=== PATIENT | female | born 1940 | race Caucasian/White ===

== ENCOUNTER 2021-11-13 15:40 | Inpatient (IN) | payer OTHER ==
[~2021-11-13] VITALS: Ht 167.6 cm; Wt 49.0 kg
[2021-11-13] MEDS: SOD FERRIC GLUC 125 MG in IV NS 0.9% 100 ML IV SCH (14:00)
[2021-11-13 18:16] LABS: BASOPHILS % (AUTO) 0.5 % (0.0-2.0); EOSINOPHILS % (AUTO) 0.2 % (0.0-6.0); LYMPHOCYTES % (AUTO) 35.1 % (20.0-44.0); MEAN CORPUSCULAR HGB CONC 30 g/dl (31.0-36.0); MEAN CORPUSCULAR VOLUME 56 fL (82-100); MONOCYTES # (AUTO) 0.4 K/uL (0.1-1.30); NEUTROPHILS # (AUTO) 3.3 K/uL (1.8-8.9); NEUTROPHILS % (AUTO) 57.2 % (43.0-81.0); PLATELET COUNT (AUTO) 439 K/uL (150-450); RED BLOOD CELL COUNT(AUTO) 2.79 MIL/uL (4.0-5.2); WHITE BLOOD COUNT (AUTO) 5.7 K/uL (4.3-11.0)
[2021-11-13 18:30] LABS: HEMOGLOBIN 4.7 g/dL (11.5-14.8)
[2021-11-13 18:31] LABS: HEMATOCRIT 16 % (33-45)
--- NOTE | 2021-11-13 18:41 | NUR ---
CALL FROM [facility], WANTS DICTATION TO INCLUDE STABLE FOR TRANSFER AND FAXED TO [phone]
--- NOTE | 2021-11-13 19:06 | NUR ---
KASSANDRA [phone] AUTH FOR PT TO STAY CONTACT DR. DERAS
--- NOTE | 2021-11-13 19:13 | NUR ---
CONTACTED DR. DERAS AWAITING CALL BACK.
[2021-11-13 19:14] LABS: CALCIUM, SERUM 7.9 mg/dL (8.5-10.1); CARBON DIOXIDE 27 mmol/L (21-32); CHLORIDE 101 mmol/L (98-107); CREATININE 1.6 mg/dL (0.6-1.3); GLUCOSE 117 mg/dL (74-106); SODIUM SERUM 137 mmol/L (136-145); UREA NITROGEN, BLOOD 36 mg/dL (7-18)
[2021-11-13 19:16] LABS: POTASSIUM 2.3 mmol/L (3.5-5.1)
--- NOTE | 2021-11-13 19:17 | NUR ---
POTASSIUM 2.3, DR TERRY AWARE
[2021-11-13 19:18] LABS: ALANINE AMINOTRANSFERASE 15 U/L (12-78); ALBUMIN 2.9 g/dL (3.4-5.0); ALKALINE PHOSPHATASE 102 U/L (46-116); ASPARTATE AMINOTRANSFERASE 11 U/L (15-37); BILIRUBIN,DIRECT 0.2 mg/dL (0.0-0.2); BILIRUBIN,TOTAL 0.5 mg/dL (0.2-1.0); TOTAL PROTEIN, SERUM 6.5 g/dL (6.4-8.2)
--- NOTE | 2021-11-13 19:26 | NUR ---
DR. DERAS SPEAKING WITH DR. TERRY OVER THE PHONE.
[2021-11-13] MEDS ORDERED: IV NS 0.9% 1,000 ML BAG IV ONE (19:30)
[2021-11-13] MEDS ORDERED: POTASSIUM CHLORIDE 20 MEQ TAB.PRT.SR PO ONE ×3 (19:30→22:00)
[2021-11-13 19:45] LABS: LYMPHOCYTES % (MANUAL) 13 % (16-48); MONOCYTES % (MANUAL) 2 % (0-11.0); NEUTROPHILS % (MANUAL) 85 (42-76)
[2021-11-13 20:14] LABS: IRON, SERUM 21 ug/dl (50-175); TOTAL IRON BINDING CAPACITY 307 ug/dl (250-450)
[2021-11-13 20:56] LABS: FERRITIN 6 ng/mL (8-388)
[2021-11-13 21:30] VITALS: BP 108/60
--- NOTE | 2021-11-13 21:30 | NUR ---
RN ADMITTING NOTE PATIENT ADMITTED FROM ER FOR SEVERE ANEMIA IN RM 321-2. PATIENT ON RA AT THIS TIME, TOLERATING WELL 100% O2 SAT. PATIENT IS ON TELE MONITOR READING CONTROLLED AFIB 88 BPM. PATIENT BROUGHT UP WITH IV FERRLECIT HOOKED ON THE PATIENT. R WRIST 18G PATENT AND INTACT WRAPPED IN KERLIX TO PREVENT PATIENT FROM PULLING OUT. PATIENT IS IRRITABLE. FOLLOWS COMMANDS, A/O X 1-2. PATIENT IS A POOR HISTORIAN. PER PATIENT, SHE IS PENTECOSTALISM. SKIN ISSUES DOCUMENTED. BELONGINGS INVENTORIED. ORIENTED PATIENT TO ROOM, RN, AND CONFIGURATION CONSULTANT. SAFETY MEASURES IN PLACE: BED LOCKED AND IN LOWEST POSITION, CALL LIGHT WITHIN REACH, SIDE RAILS UP. BED ALARM ON. WILL MONITOR PATIENT CLOSELY.
--- NOTE | 2021-11-13 21:36 | NUR ---
PATIENT TRANSFERRED TO [facility]
[2021-11-13] MEDS ORDERED: EPOETIN ALFA (20,000 UNIT) 20,000 UNIT/ML VIAL IV ONE (22:00)
[2021-11-13] MEDS ORDERED: ACETAMINOPHEN 325 MG TABLET PO PRN (22:00)
[2021-11-13] MEDS ORDERED: ZOLPIDEM TARTRATE 5 MG TABLET PO PRN (22:00)
--- NOTE | 2021-11-13 22:33 | NUR ---
EPOGEN 20,000 UNIT NOT AVAILABLE IN THE UNIT. FAXED ORDER TO NURSING SUP.
[2021-11-13] MEDS ORDERED: EPOETIN ALFA (10,000 UNIT) 10,000 UNIT/ML VIAL ONE (23:05)
--- NOTE | 2021-11-13 23:30 | NUR ---
RN NOTE CALLED BROTHER FER CORREA ([phone]) TO OBTAIN ADMISSION INFORMATION. PER BROTHER, HE IS THE DPOA AND FOR MEDICAL WELL. STATES THAT HE HAS LEGAL DOCUMENTATION THAT HE SUBMITTED TO [facility]. CONFIRMED CODE STATUS WELL WISHES PATIENT TO BE FULL CODE.
--- NOTE | 2021-11-13 23:45 | NUR ---
RN NOTE CALLED [facility] TO INFORM THEM TO FAX NEEDED DOCUMENTS, NO ANSWER. LEFT A VOICEMAIL AND CALL BACK NUMBER
[2021-11-14] VITALS: BP 110/52
[2021-11-14 04:00] VITALS: BP 103/42
--- NOTE | 2021-11-14 05:01 | NUR ---
PATIENT PULLED OUT R WRIST 18 G, INSERTED A NEW IV ACCESS ON R FA 22G PATENT AND INTACT. WRAPPED IN KERLIX WELL TO PREVENT PATIENT FROM PULLING OUT PIV
--- NOTE | 2021-11-14 06:00 | NUR ---
RN NOTE EPOGEN NOT AVAILABLE IN OTHER UNITS. WILL INFORM PHARMACY.
[2021-11-14 06:16] LABS: WHITE BLOOD COUNT (AUTO) 5.3 K/uL (4.3-11.0)
[2021-11-14 06:20] LABS: MEAN CORPUSCULAR HGB CONC 30 g/dl (31.0-36.0); MEAN CORPUSCULAR VOLUME 56 fL (82-100); PLATELET COUNT (AUTO) 412 K/uL (150-450); RED BLOOD CELL COUNT(AUTO) 2.68 MIL/uL (4.0-5.2)
[2021-11-14 06:26] LABS: HEMATOCRIT 15 % (33-45); HEMOGLOBIN 4.5 g/dL (11.5-14.8)
--- NOTE | 2021-11-14 06:28 | NUR ---
H/H REPORTED BY BIT GRINDER HGB 4.5, AND HCT 15
[2021-11-14 06:50] LABS: ALANINE AMINOTRANSFERASE 14 U/L (12-78); ALBUMIN 2.8 g/dL (3.4-5.0); ALKALINE PHOSPHATASE 99 U/L (46-116); ASPARTATE AMINOTRANSFERASE 12 U/L (15-37); BILIRUBIN,TOTAL 0.4 mg/dL (0.2-1.0); CARBON DIOXIDE 29 mmol/L (21-32); CHLORIDE 103 mmol/L (98-107); CREATININE 1.4 mg/dL (0.6-1.3); GLUCOSE 97 mg/dL (74-106); SODIUM SERUM 140 mmol/L (136-145); TOTAL PROTEIN, SERUM 6.2 g/dL (6.4-8.2); UREA NITROGEN, BLOOD 33 mg/dL (7-18)
--- NOTE | 2021-11-14 06:55 | NUR ---
RN NOTE NOTIFIED IN [facility] THAT EPOGEN 20,000 UNIT DOSE NOT GIVEN THERE WAS ONLY 10,000 UNIT AVAILABLE. VIAL GIVEN BACK TO NURSING CRUSHING FOREMAN. PER PHARMACY, IT WILL BE IN MULTIPLE 5,000 UNIT VIALS AND WILL BE DELIVERED SOON.
[2021-11-14 06:56] VITALS: BP 103/42
[2021-11-14] MEDS ORDERED: EPOETIN ALFA (20,000 UNIT) 20,000 UNIT/ML VIAL IV ONE (07:00)
--- NOTE | 2021-11-14 07:00 | NUR ---
SQL SSRS DEVELOPER OPENING NOTE PATIENT LAYING IN BED, A/O X 1, TOLERATING WELL ON ROOM AIR WITH NO S/S RESPIRATORY DISTRESS. NO COMPLAINTS OF PAIN OR DISCOMFORT AT THIS TIME. TELE MONITOR IN PLACE READING A-FIB 80. RFA # 22 G SL CLEAN, INTACT, AND FLUSHING WELL. SAFETY MEASURES IN PLACE: BED IN LOWEST LOCKED POSITION, SIDE RAILS UP X 2, CALL LIGHT WITHIN REACH. WILL CONTINUE TO MONITOR.
--- NOTE | 2021-11-14 07:04 | NUR ---
RN CLOSING NOTE PATIENT IN BED, EYES CLOSED, EASILY AWAKENED. PATIENT IS A/O X 1-2 STILL. NO PAIN OR DISCOMFORT AT THIS TIME. TELE MONITOR READS CONTROLLED AFIB 98 BPM. RFA 22G PATENT AND INTACT. ORDERED EKG DT PATIENT NOT HAVING INITIAL EKG IN ER. STILL AWAITING CALL BACK FROM [facility]. SAFETY MEASURES IMPLEMENTED. NO SIGNIFICANT CHANGES DURING THE SHIFT. ALL NEEDS MET AND ATTENDED. ALL ORDERS CARRIED OUT. WILL ENDORSE TO DAY SHIFT NURSE TO [facility].
[2021-11-14] MEDS ORDERED: MULT-134 PO (07:47)
[2021-11-14] MEDS ORDERED: ROSU10TA2 PO (07:47)
[2021-11-14] MEDS ORDERED: MEGE400O4 PO (07:47)
[2021-11-14] MEDS ORDERED: LISI10TA29 PO (07:47)
[2021-11-14] MEDS ORDERED: METO-357 PO (07:47)
[2021-11-14] MEDS ORDERED: SENN-175 PO (07:47)
[2021-11-14] MEDS ORDERED: DILT180C66 PO (07:47)
[2021-11-14] MEDS ORDERED: AMIN887L PO (07:47)
[2021-11-14 08:10] LABS: BASOPHILS % (MANUAL) 0 % (0.0-2.0); EOSINOPHILS % (MANUAL) 1 % (0-4); LYMPHOCYTES % (MANUAL) 23 % (16-48); MONOCYTES % (MANUAL) 6 % (0-11.0); NEUTROPHILS % (MANUAL) 70 (42-76)
[2021-11-14 08:36] LABS: POTASSIUM 2.3 mmol/L (3.5-5.1)
[2021-11-14] MEDS: METOPROLOL SUCCINATE 50 MG TAB.SR.24H PO SCH (09:00)
[2021-11-14] MEDS: MEGESTROL ACETATE SUSP 400 MG/10 ML UDC PO SCH ×2 (09:25→16:24)
[2021-11-14] MEDS: MULTIVIT W/MINERALS 1 TAB TABLET PO SCH (09:25)
[2021-11-14] MEDS: PROSTAT (PYXIS) 30 ML UDC PO SCH (09:33)
[2021-11-14] MEDS: POTASSIUM CHLORIDE 20 MEQ TAB.PRT.SR PO SCH ×4 (11:17→20:54)
[2021-11-14] MEDS: SOD FERRIC GLUC 125 MG in IV NS 0.9% 100 ML IV SCH (13:50)
[2021-11-14] MEDS: ENSURE ENLIVE 237 ML LIQUID (VANILLA) PO SCH (16:24)
--- NOTE | 2021-11-14 18:12 | NUR ---
RN ADMIT NOTES [facility] (FACILITY PATIENT WAS TRANSFERRED FROM) WAS CALLED AND VOICEMAIL LEFT X 2 TO REQUEST PREVIOUS MEDICATION LIST. FAX NUMBER AND PHONE NUMBER FOR [facility] WERE LEFT IN VOICEMAIL MESSAGES.
--- NOTE | 2021-11-14 18:45 | NUR ---
EMBROIDERY MACHINE OPERATOR CLOSING NOTES PATIENT LAYING IN BED, A/O X 1, TOLERATING WELL ON ROOM AIR WITH NO S/S RESPIRATORY DISTRESS. NO COMPLAINTS OF PAIN OR DISCOMFORT AT THIS TIME. TELE MONITOR IN PLACE READING A-FIB . RFA # 22 G SL CLEAN, INTACT, AND FLUSHING WELL. SAFETY MEASURES IN PLACE: BED IN LOWEST LOCKED POSITION, SIDE RAILS UP X 2, CALL LIGHT WITHIN REACH. ALL NEEDS MET. TURNED Q2H DURING SHIFT. WILL ENDORSE TO INSURANCE INSPECTOR FOR TOMI.
--- NOTE | 2021-11-14 19:30 | NUR ---
PROCESS CONTROL ENGINEER NOTES RECEIVED ON BED A/OX1-2,BREATHING EASY,NO SOB,TELE,UNCONTROLLED AFIB 123,ASYMPTOMATIC,DENIES CHEST PAIN,COMMENTED FEELING WEAK,WITH H/H OF 4.5/15 THIS MORNING,NO BLOOD TRANSFUSION DUE TO JEHOVAHS WITNESS,ON FERLICCET IV DAILY.WITH SALINE LOCK RFA INTACT AND PATENT.FALL PRECAUTION OBSERVED,BED ON LOWEST POSITION AND LOCKED,BED ALAR,CALL LIGHT IN REACH,NEEDS ANTICIPATED.
[2021-11-14 20:00] VITALS: BP 97/50
--- NOTE | 2021-11-14 21:30 | NUR ---
DIRECTOR OF SOFTWARE DEVELOPMENT NOTES STILL UNCONTROLLED AFIB THIS TIME,HR 134 ON STAT EKG,CHARGE NURSE AWARE,MD DERAS MADE AWARE AWAITING TO CALL BACK
--- NOTE | 2021-11-14 22:00 | NUR ---
PRINTED CIRCUIT BOARDS PLASMA ETCHER NOTES DR DERAS CALLED BACK WITH NEW ORDER OF DIGOXIN 0.25MG IV X1 NOTED AND CARRIED OUT.
[2021-11-14] MEDS: ATORVASTATIN 40 MG TABLET PO SCH (22:08)
[2021-11-14] MEDS: SENNOSIDES 8.6 MG TABLET PO SCH (22:09)
--- NOTE | 2021-11-14 22:26 | NUR ---
BELL HOLE DIGGER NOTES HR-134 DIGOXIN 0.25MG IV GIVEN SLOWLY ORDERED.
[2021-11-14] MEDS ORDERED: DIGOXIN INJ 0.5 MG/2 ML AMPUL IV ONE (22:30)
--- NOTE | 2021-11-14 23:10 | NUR ---
MIDDLE OR INTERMEDIATE SCHOOL PRINCIPAL NOTES HEART RATE DOWN TO 106 THIS TIME.
[2021-11-15] VITALS: BP 106/48
[2021-11-15] MEDS: POTASSIUM CHLORIDE 20 MEQ TAB.PRT.SR PO SCH ×4 (01:03→12:20)
[2021-11-15 04:00] VITALS: BP 115/69
--- NOTE | 2021-11-15 06:30 | NUR ---
DIRECTOR OF BUSINESS CONTINUITY NOTES STILL UNCONTROLLED AFIB,RATE OF 108,DENIES ANY CHEST DISCOMFORTS.EPOXY SPECIALIST WILL COME LATER FOR MORNING LAB DRAW.MEPILEX APPLIED TO SACRAL AREA.ALL DUE MEDS ADMINISTERED.CALL LIGHT IN REACH,NEEDS ATTENDED.
--- NOTE | 2021-11-15 07:00 | NUR ---
OIL PROGRAM COMPLIANCE SPECIALIST OPENING NOTES PATIENT LAYING IN BED, A/O X 1, TOLERATING WELL ON ROOM AIR WITH NO S/S RESPIRATORY DISTRESS. NO COMPLAINTS OF PAIN OR DISCOMFORT AT THIS TIME. TELE MONITOR IN PLACE READING A-FIB 106. R FA # 22 SL CLEAN, INTACT, AND FLUSHING WELL. SAFETY MEASURES IN PLACE: BED IN LOWEST LOCKED POSITION, SIDE RAILS UP X 2, CALL LIGHT WITHIN REACH. WILL CONTINUE TO MONITOR.
[2021-11-15] MEDS: ENSURE ENLIVE 237 ML LIQUID (VANILLA) PO SCH ×3 (07:33→17:58)
[2021-11-15 08:00] VITALS: BP 104/76
[2021-11-15] MEDS: METOPROLOL SUCCINATE 50 MG TAB.SR.24H PO SCH (09:00)
[2021-11-15] MEDS: MEGESTROL ACETATE SUSP 400 MG/10 ML UDC PO SCH ×2 (09:15→17:58)
[2021-11-15] MEDS: DIGOXIN 0.125 MG TABLET PO SCH (09:15)
[2021-11-15] MEDS: MULTIVIT W/MINERALS 1 TAB TABLET PO SCH (09:16)
[2021-11-15] MEDS: PROSTAT (PYXIS) 30 ML UDC PO SCH (09:17)
--- NOTE | 2021-11-15 09:19 | NUR ---
ELO HELD THIS AM TO AVOID BRADYCARDIA PATIENT ALREADY TAKING DIGOXIN AT HR 87
[2021-11-15 13:31] LABS: MEAN CORPUSCULAR HGB CONC 29 g/dl (31.0-36.0); MEAN CORPUSCULAR VOLUME 60 fL (82-100); PLATELET COUNT (AUTO) 402 K/uL (150-450); RED BLOOD CELL COUNT(AUTO) 2.64 MIL/uL (4.0-5.2); WHITE BLOOD COUNT (AUTO) 8.2 K/uL (4.3-11.0)
[2021-11-15 13:38] LABS: CALCIUM, SERUM 8.4 mg/dL (8.5-10.1)
[2021-11-15 13:41] LABS: HEMATOCRIT 16 % (33-45); HEMOGLOBIN 4.6 g/dL (11.5-14.8)
[2021-11-15 13:45] LABS: POTASSIUM 5.6 mmol/L (3.5-5.1)
[2021-11-15] MEDS: SOD FERRIC GLUC 125 MG in IV NS 0.9% 100 ML IV SCH (13:56)
[2021-11-15 14:25] LABS: BASOPHILS % (MANUAL) 0 % (0.0-2.0); EOSINOPHILS % (MANUAL) 0 % (0-4); LYMPHOCYTES % (MANUAL) 19 % (16-48); MONOCYTES % (MANUAL) 6 % (0-11.0); NEUTROPHILS % (MANUAL) 75 (42-76)
[2021-11-15 15:20] LABS: OCCULT BLOOD STOOL POSITIVE (NEGATIVE)
--- NOTE | 2021-11-15 15:22 | NUR ---
DEVELOPER SUPPORT ENGINEER NOTES SPOKE WITH DR TULIO JOHANSEN WHO WAS COVERING FOR DR DERAS. DR GREENBERG STATED PATIENT DOES NOT NEED CARDIAC CONSULT.
[2021-11-15 15:54] VITALS: BP 109/55
[2021-11-15 18:06] LABS: IRON, SERUM 110 ug/dl (50-175); TOTAL IRON BINDING CAPACITY 298 ug/dl (250-450)
[2021-11-15 18:25] LABS: CHOLESTEROL 106 mg/dL (<200); FERRITIN 195 ng/mL (8-388); HDL CHOLESTEROL 42 mg/dL (40-60); LDL 51 mg/dL (0-99); THYROID STIMULATING HORMONE 1.433 uIU/mL (0.358-3.74); TRIGLYCERIDES 46 mg/dL (30-150)
--- NOTE | 2021-11-15 19:00 | NUR ---
FINAL INSPECTOR BALANCE WHEEL CLOSING NOTES PATIENT LAYING IN BED, A/O X 1, TOLERATING WELL ON ROOM AIR WITH NO S/S RESPIRATORY DISTRESS. NO COMPLAINTS OF PAIN OR DISCOMFORT AT THIS TIME. TELE MONITOR IN PLACE READING A-FIB. R FA # 22 SL CLEAN, INTACT, AND FLUSHING WELL. SAFETY MEASURES IN PLACE: BED IN LOWEST LOCKED POSITION, SIDE RAILS UP X 2, CALL LIGHT WITHIN REACH. ALL NEEDS MET. ATTENDING MD WAS MADE AWARE OF PATIENT A-FIB DURING SHIFT, BUT NO CARDIAC CONSULT WAS RECOMMENDED. PATIENT TURNED Q2H. WILL ENDORSE TO WASTEWATER ENGINEER FOR TOMI.
--- NOTE | 2021-11-15 19:30 | NUR ---
DEPARTMENT SECRETARY NOTES RECEIVED LAYING COMFORTABLY ON BED,BREATHING EASY,NO SOB,STILL UNCONTROLLED AFIB ON TELE MONITOR 114,ON DIGOXIN 0.125 PO DAILY.SALINE LOCK RIGHT FOREARM INTACT AND PATENT.H/H STILL LOW AT 4.6/16,POSITIVE FOR OCCULT BLOOD.CALL LIGHT IN REACH,NEEDS ANTICIPATED.
[2021-11-15 20:00] VITALS: BP 97/42
[2021-11-15] MEDS: ATORVASTATIN 40 MG TABLET PO SCH (21:56)
[2021-11-15] MEDS: SENNOSIDES 8.6 MG TABLET PO SCH (21:57)
[2021-11-16 04:00] VITALS: BP 106/51
--- NOTE | 2021-11-16 06:50 | NUR ---
CHOKE SETTER NOTES AFIB 102 THIS TIME.CALM AND QUIET ON BED,MED COMPLIANT,VITAL SIGNS STABLE,IN NO ACUTE DISTRESS.
[2021-11-16 07:05] LABS: BASOPHILS % (AUTO) 0.5 % (0.0-2.0); EOSINOPHILS % (AUTO) 0.3 % (0.0-6.0); LYMPHOCYTES # (AUTO) 1.3 K/uL (0.8-4.8); LYMPHOCYTES % (AUTO) 18.6 % (20.0-44.0); MEAN CORPUSCULAR HGB CONC 29 g/dl (31.0-36.0); MEAN CORPUSCULAR VOLUME 59 fL (82-100); MONOCYTES # (AUTO) 0.7 K/uL (0.1-1.30); MONOCYTES % (AUTO) 10.7 % (2.0-12.0); NEUTROPHILS # (AUTO) 4.9 K/uL (1.8-8.9); NEUTROPHILS % (AUTO) 69.9 % (43.0-81.0); PLATELET COUNT (AUTO) 382 K/uL (150-450); RED BLOOD CELL COUNT(AUTO) 2.52 MIL/uL (4.0-5.2)
[2021-11-16 07:06] LABS: CANCER AG, 125 39.1 U/mL (0.0-38.1)
[2021-11-16 07:22] LABS: ALBUMIN 2.8 g/dL (3.4-5.0); CALCIUM, SERUM 8.6 mg/dL (8.5-10.1); CARBON DIOXIDE 22 mmol/L (21-32); CHLORIDE 114 mmol/L (98-107); CREATININE 1.1 mg/dL (0.6-1.3); GLUCOSE 97 mg/dL (74-106); MAGNESIUM 2.7 mg/dL (1.8-2.4); POTASSIUM 5.5 mmol/L (3.5-5.1); SODIUM SERUM 142 mmol/L (136-145); UREA NITROGEN, BLOOD 19 mg/dL (7-18)
[2021-11-16 07:48] LABS: HEMOGLOBIN 4.2 g/dL (11.5-14.8)
[2021-11-16 07:49] LABS: HEMATOCRIT 15 % (33-45)
[2021-11-16] MEDS: ENSURE ENLIVE 237 ML LIQUID (VANILLA) PO SCH ×3 (07:50→17:06)
[2021-11-16 08:00] VITALS: BP 92/48
[2021-11-16 08:05] LABS: ALANINE AMINOTRANSFERASE 16 U/L (12-78); ALKALINE PHOSPHATASE 101 U/L (46-116); ASPARTATE AMINOTRANSFERASE 14 U/L (15-37); BILIRUBIN,TOTAL 0.5 mg/dL (0.2-1.0); PHOSPHORUS 1.5 mg/dL (2.5-4.9); TOTAL PROTEIN, SERUM 6.2 g/dL (6.4-8.2)
--- NOTE | 2021-11-16 08:18 | NUR ---
RN NOTE CRITICAL LAB VALUE OF HEMOGLOBIN 4.2 AND HEMATOCRIT 15 RECEIVED. LAB VALUE EXPECTED DUE TO PT REFUSING PRBC TRANSFUSION WITH A HX OF SEVERE ANEMIA. AWARE OF PT'S REFUSAL OF TREATMENT AND OF CRITICAL LAB VALUES OVER PAST FEW DAYS.
[2021-11-16] MEDS: MULTIVIT W/MINERALS 1 TAB TABLET PO SCH (08:26)
[2021-11-16] MEDS: MEGESTROL ACETATE SUSP 400 MG/10 ML UDC PO SCH ×2 (08:27→17:04)
[2021-11-16] MEDS: PROSTAT (PYXIS) 30 ML UDC PO SCH (08:27)
[2021-11-16] MEDS: METOPROLOL SUCCINATE 50 MG TAB.SR.24H PO SCH (08:27)
[2021-11-16] MEDS: DIGOXIN 0.125 MG TABLET PO SCH (08:27)
--- NOTE | 2021-11-16 08:33 | NUR ---
RN NOTE PT EDUCATED ON LOW HEMOGLOBIN AND HEMATOCRIT AND THE HIGH RISK AND POSSIBLE COMPLICATIONS ASSOCIATED WITH REFUSING PRBC TRANSFUSION. PT VERBALIZES UNDERSTANDING AND CONTINUES TO REFUSE BLOOD TRANSFUSION. PT VERBALIZES DESIRES TO REMAIN FULL CODE AT THIS TIME.
[2021-11-16] MEDS ORDERED: IV NS 0.9% 1,000 ML IV PRN (09:00)
[2021-11-16] MEDS: NEUTRA PHOS 1 POWD.PACKET PO SCH ×2 (09:01→17:04)
[2021-11-16 11:59] LABS: BASOPHILS % (MANUAL) 0 % (0.0-2.0); EOSINOPHILS % (MANUAL) 0 % (0-4); LYMPHOCYTES % (MANUAL) 22 % (16-48); MONOCYTES % (MANUAL) 6 % (0-11.0); NEUTROPHILS % (MANUAL) 72 (42-76)
[2021-11-16] MEDS: SOD FERRIC GLUC 125 MG in IV NS 0.9% 100 ML IV SCH (14:53)
[2021-11-16 16:00] VITALS: BP 118/64
--- NOTE | 2021-11-16 17:09 | NUR ---
RN NOTE IV INFILTRATED. PT HARD STICK, UNABLE TO PLACE NEW ONE. REQUESTED MIDLINE PLACEMENT FROM NURSING SUP.
--- NOTE | 2021-11-16 19:30 | NUR ---
LEARNING DESIGNER OPENING NOTE RECEIVED PT RESTING IN BED. A/O X3 AND ABLE TO MAKE NEEDS KNOWN. PT STABLE ON ROOM AIR. NO SOB OR S/S OF RESPIRATORY DISTRESS. BREATHING EVEN AND UNLABORED. ON EXTERNAL MANUAL QA TESTER READING UNCONTROLLED AFIB @ 110 BPM. IV ACCESS MANDIE MIDLINE, INTACT AND PATENT, RUNNING NS @ 50 ML/HR. SAFETY PRECAUTIONS IN PLACE. BED IN LOWEST LOCKED POSITION, HOB ELEVATED, SIDE RAILS UP X3, AND CALL LIGHT AND TABLE WITHIN REACH. ALL NEEDS MET AT THIS TIME.
[2021-11-16 20:00] VITALS: BP 110/55
[2021-11-16] MEDS: SENNOSIDES 8.6 MG TABLET PO SCH (21:28)
[2021-11-16] MEDS: SODIUM POLYSTYRENE SULF. PWD 15 GM UDC PO SCH (22:00)
[2021-11-17] VITALS (8 sets, daily range): BP systolic 97–120; BP diastolic 42–62
--- NOTE | 2021-11-17 06:43 | NUR ---
FARM MACHINE TENDER CLOSING NOTE PT RESTING IN BED. A/O X3 AND ABLE TO MAKE NEEDS KNOWN. PT STABLE ON ROOM AIR. NO SOB OR S/S OF RESPIRATORY DISTRESS. BREATHING EVEN AND UNLABORED. ON EXTERNAL WINDOW FRAMER READING CONTROLLED AFIB @ 90 BPM. IV ACCESS MANDIE MIDLINE, INTACT AND PATENT, RUNNING NS @ 50 ML/HR. ALL DUE MEDS GIVEN ORDERED. TURNED AND REPOSITIONED Q2H. SAFETY PRECAUTIONS IN PLACE AT ALL TIMES. BED IN LOWEST LOCKED POSITION, HOB ELEVATED, SIDE RAILS UP X3, AND CALL LIGHT AND TABLE WITHIN REACH. ALL NEEDS MET AT THIS TIME AND WILL ENDORSE TO ONCOMING NURSE FOR TOMI.
--- NOTE | 2021-11-17 07:30 | NUR ---
CERTIFIED REGISTERED DENTAL ASSISTANT OPENING NOTES: RECEIVED PT IN BED ASLEEP EASILY AROUSED WITH STIMULI.A/O X3. NO SOB OR CARDIAC DISTRESS NOTED. OM ROOM AIR AND TOLERATING WELL. ON CARDIAC MONITPOR WITH CURRENT READING OF AFIB @90BPM. DENIES ANY PAIN AT THIS TIME. WITH IV ACCESS ON MANDIE MIDLINE NS @50ML/HR PATENT AND INTACT. SAFETY PRECAUTIONS MAINTAINED: BED LOCKED AND IN LOWEST POSITION. SIDE RAILS UP X 2. CALL LIGHT IN EASY REACH. KEPT RESTED AND COMFORTABLE. WILL MONITOR ACCORDINGLY.
[2021-11-17] MEDS: ENSURE ENLIVE 237 ML LIQUID (VANILLA) PO SCH ×3 (08:02→17:00)
[2021-11-17] MEDS: METOPROLOL SUCCINATE 50 MG TAB.SR.24H PO SCH (09:00)
[2021-11-17] MEDS: MULTIVIT W/MINERALS 1 TAB TABLET PO SCH (09:01)
[2021-11-17] MEDS: MEGESTROL ACETATE SUSP 400 MG/10 ML UDC PO SCH ×2 (09:01→17:29)
[2021-11-17] MEDS: DIGOXIN 0.125 MG TABLET PO SCH (09:02)
[2021-11-17] MEDS: PROSTAT (PYXIS) 30 ML UDC PO SCH (09:03)
[2021-11-17] MEDS: NEUTRA PHOS 1 POWD.PACKET PO SCH ×2 (09:06→17:29)
[2021-11-17] MEDS: SODIUM POLYSTYRENE SULF. PWD 15 GM UDC PO SCH (10:00)
[2021-11-17] MEDS: IV NS 0.9% 1,000 ML IV PRN (10:39)
--- NOTE | 2021-11-17 11:00 | NUR ---
RN NOTES: ENCOURAGING TO DRINK FLUIDS TOLERATED. PATIENT KEPT REFUSING TO DRINK.
[2021-11-17] MEDS ORDERED: PEG 3350/NA SULF,BICARB,CL/KCL 4,000 ML BOTTLE PO ONE (12:00)
--- NOTE | 2021-11-17 12:00 | NUR ---
RN NOTES: BRIEFLY EXPLAINED TO PT THAT SHE WILL HAVE A PROCEDURE TOMORROW MORNING FOR COLONOSCOPY, SHE WILL HAVE CLEAR LIQUIDS AND WILL DRINK A BOWEL PREP ORDERED. OBTAINED CONSENT FOR THE PROCEDURE.
[2021-11-17] MEDS: ENSURE CLEAR 237 ML LIQUID (MIX BERRY) PO SCH ×2 (12:09→17:29)
--- NOTE | 2021-11-17 12:30 | NUR ---
RN NOTES: PATIENTLY ENCOURAGING PATIENT TO DRINK GOLYTLEY (BOWEL PREP). PATIENT ABLE TO DRINK 1 CUP.
--- NOTE | 2021-11-17 14:00 | NUR ---
RN NOTES: OFFERED THE BOWEL PREP GOLYTELY, PATIENT ONLY HAD FEW SIPS AND REFUSED TO DRINK.
[2021-11-17] MEDS: SOD FERRIC GLUC 125 MG in IV NS 0.9% 100 ML IV SCH (14:34)
--- NOTE | 2021-11-17 15:00 | NUR ---
RN NOTES: ENCOURAGED PT TO DRINK BOWEL PREP BUT PATIENT TOOK ONLY FEW SIPS.
--- NOTE | 2021-11-17 16:30 | NUR ---
RN NOTES: PATIENT IS GETTING UPSET SHE SAID SHE'S FULL FROM THE BOWEL PREP.
--- NOTE | 2021-11-17 18:37 | NUR ---
CRM ADMINISTRATOR CLOSING NOTES: PATIENT IN BED AWAKE A/O X3. NO SOB OR CARDIAC DISTRESS NOTED. ON ROOM AIR AND TOLERATING WELL. ON CARDIAC MONITPOR WITH CURRENT READING OF CONTROLLED AFIB @88BPM. DENIES ANY PAIN AT THIS TIME. WITH IV ACCESS ON MANDIE MIDLINE NS @50ML/HR PATENT AND INTACT. ON CLEAR LIQUIDS. SAFETY PRECAUTIONS MAINTAINED: BED LOCKED AND IN LOWEST POSITION. SIDE RAILS UP X 2. CALL LIGHT IN EASY REACH. KEPT RESTED AND COMFORTABLE. ENDORSED TO PAINT ROLLER COVERS SUPERVISOR FOR TOMI.
--- NOTE | 2021-11-17 21:06 | NUR ---
BOX COVERER HAND OPENING NOTES: PATIENT IN BED AWAKE A/O X3. NO SOB OR CARDIAC DISTRESS NOTED. ON ROOM AIR AND TOLERATING WELL. ON METAL OR WOOD BLOCKER WITH CURRENT READING OF CONTROLLED AFIB @88BPM. DENIES ANY PAIN AT THIS TIME. WITH IV ACCESS ON MANDIE MIDLINE NS @75ML/HR PATENT AND INTACT. ON CLEAR LIQUIDS. SAFETY PRECAUTIONS MAINTAINED PT TO BE NPO AFTER MIDNIGHT FOR COLONOSCOPY.BED LOCKED AND IN LOWEST POSITION. SIDE RAILS UP X 2. CALL LIGHT IN EASY REACH. KEPT RESTED AND COMFORTABLE.WILL CONTINUE TO MONITOR.
[2021-11-17] MEDS: SENNOSIDES 8.6 MG TABLET PO SCH (21:34)
[2021-11-18] VITALS: BP 112/57
[2021-11-18 04:00] VITALS: BP 115/59
--- NOTE | 2021-11-18 06:32 | NUR ---
FISHERIES TECHNICIAN CLOSING NOTES: PATIENT IN BED AWAKE A/O X3. NO SOB OR CARDIAC DISTRESS NOTED. ON ROOM AIR AND TOLERATING WELL. ON SCREEN TENDER WITH CURRENT READING OF CONTROLLED AFIB. DENIES ANY PAIN AT THIS TIME. WITH IV ACCESS ON MANDIE MIDLINE NS @75ML/HR PATENT AND INTACT. SAFETY PRECAUTIONS MAINTAINED PT NPO FOR COLONOSCOPY HOWEVER PT REFUSED TO TAKE PREP MULTIPLE TIMES THROUGHOUT THE NIGHT .BED LOCKED AND IN LOWEST POSITION. SIDE RAILS UP X 2. CALL LIGHT IN EASY REACH. KEPT RESTED AND COMFORTABLE.WILL ENDORSE CARE.
[2021-11-18 07:13] LABS: CALCIUM, SERUM 8.5 mg/dL (8.5-10.1); CARBON DIOXIDE 19 mmol/L (21-32); CHLORIDE 118 mmol/L (98-107); CREATININE 0.9 mg/dL (0.6-1.3); GLUCOSE 80 mg/dL (74-106); PHOSPHORUS 3.4 mg/dL (2.5-4.9); POTASSIUM 3.9 mmol/L (3.5-5.1); SODIUM SERUM 151 mmol/L (136-145); UREA NITROGEN, BLOOD 13 mg/dL (7-18)
--- NOTE | 2021-11-18 07:30 | NUR ---
APPLICATION SECURITY DEVELOPER OPENING NOTES: RECEIVED PT IN BED ASLEEP EASILY AROUSED WITH STIMULI.A/O X3. NO SOB OR CARDIAC DISTRESS NOTED. OM ROOM AIR AND TOLERATING WELL. ON COMPENSATOR WORKER WITH CURRENT READING OF CONTROLLED AFIB @88 BPM. DENIES ANY PAIN AT THIS TIME. WITH IV ACCESS ON MANDIE MIDLINE NS @50ML/HR PATENT AND INTACT. ON NPO ORDERED.SAFETY PRECAUTIONS MAINTAINED: BED LOCKED AND IN LOWEST POSITION. SIDE RAILS UP X 2. CALL LIGHT IN EASY REACH. KEPT RESTED AND COMFORTABLE. WILL MONITOR ACCORDINGLY.
[2021-11-18 07:31] LABS: MEAN CORPUSCULAR HGB CONC 29 g/dl (31.0-36.0); MEAN CORPUSCULAR VOLUME 63 fL (82-100); PLATELET COUNT (AUTO) 364 K/uL (150-450); RED BLOOD CELL COUNT(AUTO) 2.54 MIL/uL (4.0-5.2); WHITE BLOOD COUNT (AUTO) 7.3 K/uL (4.3-11.0)
[2021-11-18 07:39] LABS: HEMATOCRIT 16 % (33-45); HEMOGLOBIN 4.7 g/dL (11.5-14.8)
[2021-11-18 08:00] VITALS: BP 113/58
[2021-11-18] MEDS: ENSURE CLEAR 237 ML LIQUID (MIX BERRY) PO SCH ×3 (08:00→17:40)
--- NOTE | 2021-11-18 08:56 | NUR ---
RN NOTES: PT SEEN AND EXAMINED BY DR DERAS.WITH NEW ORDERS MADE.
[2021-11-18] MEDS: DIGOXIN 0.125 MG TABLET PO SCH (09:00)
[2021-11-18] MEDS: METOPROLOL SUCCINATE 50 MG TAB.SR.24H PO SCH (09:00)
[2021-11-18] MEDS: NEUTRA PHOS 1 POWD.PACKET PO SCH ×2 (09:00→17:40)
[2021-11-18] MEDS: PROSTAT (PYXIS) 30 ML UDC PO SCH (09:00)
[2021-11-18] MEDS: MULTIVIT W/MINERALS 1 TAB TABLET PO SCH (09:00)
[2021-11-18] MEDS: SODIUM POLYSTYRENE SULF. PWD 15 GM UDC PO SCH (09:00)
[2021-11-18] MEDS: MEGESTROL ACETATE SUSP 400 MG/10 ML UDC PO SCH ×2 (09:50→17:40)
--- NOTE | 2021-11-18 09:56 | NUR ---
RN NOTES: DR DERAS MADE AWARE THAT PT IS NOT COMPLIANT ON DRINKING HER BOWEL PREP. GOT AN ORDER OF NGT INSERTION FROM DR DERAS. PATIENT WAS INFORMED AND VERBALLY CONSENTED US TO DO NGT INSERTION.
[2021-11-18 12:00] VITALS: BP_SYST 112; BP_SYST 117; BP_DIAS 58
[2021-11-18 13:43] LABS: BAND % (MANUAL) 1 % (0.0-5.0); LYMPHOCYTES % (MANUAL) 16 % (16-48); MONOCYTES % (MANUAL) 5 % (0-11.0); NEUTROPHILS % (MANUAL) 78 (42-76)
--- NOTE | 2021-11-18 14:00 | NUR ---
RN NOTES: RNS TERA AND MINERVA INITIATE DTO INSERT NGT BUT PT REFUSED TO GET NGT. DR DERAS MADE AWARE AND SAID OKAY AND PAGED DR MONSIVAIS, AWAITING FOR CALL BACK,.
[2021-11-18] MEDS: EPOETIN ALFA-EPBX 10,000 UNIT/ML VIAL IV SCH (14:13)
[2021-11-18 16:00] VITALS: BP 109/57
--- NOTE | 2021-11-18 16:17 | NUR ---
RN NOTES: VISITOR AT BED SIDE AND WE ENCOURAGED PT TO DRINK THE BOWEL PREP X 3 AND PT STRONGLY REFUSED.
--- NOTE | 2021-11-18 16:46 | NUR ---
PRECISION MACHINIST CLOSING NOTES: PATIENT IN BED .A/O X3. NO SOB OR CARDIAC DISTRESS NOTED. ON ROOM AIR AND TOLERATING WELL. ON RIVERS AND LAKES LEVERMAN WITH CURRENT READING OF CONTROLLED AFIB WITH PVCs @ 96 BPM. DENIES ANY PAIN AT THIS TIME. WITH IV ACCESS ON MANDIE MIDLINE NS @50ML/HR PATENT AND INTACT. ON CLEAR LIQUID ORDERED.SAFETY PRECAUTIONS MAINTAINED: BED LOCKED AND IN LOWEST POSITION. SIDE RAILS UP X 2. CALL LIGHT IN EASY REACH. KEPT RESTED AND COMFORTABLE. ENDORSED TO APPLICATION INTEGRATION ARCHITECT NURSE FOR TOMI.
--- NOTE | 2021-11-18 19:05 | NUR ---
RN NOTES: RECEIEVD AWAKE ON BED, PALE LOOKING, LOOKS WEAK, DRY LIPS AND ON TELE MONITOR A FIB RATE-91, A/OX1-2 WITH PERIODS OF CONFUSION, ORIENTED TO UNIT AND STAFF, NON LABORED BREATHING, ON ROOM AIR, INCONTINENT B/B, CONTINUE ON BOWEL PREPARATION FOR POSSIBOLE ENDOSCOPY, PER RN VERY POOR COMPLIANCE WITH ORAL INFUSION OF GOLITELY, , ON BED REST, SKIN INTACT, MANDIE MID LINE WITH IVF ON NS AT 50 ML/HR,. -SAFETY AND ASPIRATION PRECAUTION OBSERVE. -LATEST HG-4.7, NO BT SECONDARY TO JEWISH BELIEF.
[2021-11-18 20:00] VITALS: BP 115/54
[2021-11-18] MEDS: SENNOSIDES 8.6 MG TABLET PO SCH (21:05)
--- NOTE | 2021-11-18 22:01 | NUR ---
RN NOTES: CHECKED AT [facility] INTERVALS AND GIVEN HER DRINK, SHE WILL ONLY TAKE A SMALL SIPS, THEN SHE REFUSED, MEDICATION COMPLIANT BUT NOT ON HER ORAL BOWEL PREP, IVF CONTINUE.NEEDS ATTENDED.
[2021-11-19] VITALS: BP 111/51
[2021-11-19] MEDS: IV NS 0.9% 1,000 ML IV PRN (04:34)
--- NOTE | 2021-11-19 04:34 | NUR ---
RN NOTES: IVF CONSUMED, STARTED WITH NEW BAG NS AT 50 ML/HR VIA INFUSION PUMP, ASLEEP IN BETWEEN.
[2021-11-19 06:12] LABS: CALCIUM, SERUM 8.3 mg/dL (8.5-10.1); CARBON DIOXIDE 18 mmol/L (21-32); CHLORIDE 119 mmol/L (98-107); GLUCOSE 84 mg/dL (74-106); POTASSIUM 3.4 mmol/L (3.5-5.1); SODIUM SERUM 154 mmol/L (136-145); UREA NITROGEN, BLOOD 13 mg/dL (7-18)
[2021-11-19 06:38] VITALS: BP 123/59
[2021-11-19 07:22] LABS: MEAN CORPUSCULAR HGB CONC 29 g/dl (31.0-36.0); MEAN CORPUSCULAR VOLUME 64 fL (82-100); PLATELET COUNT (AUTO) 352 K/uL (150-450); RED BLOOD CELL COUNT(AUTO) 2.39 MIL/uL (4.0-5.2); WHITE BLOOD COUNT (AUTO) 7.5 K/uL (4.3-11.0)
--- NOTE | 2021-11-19 07:27 | NUR ---
CREPE SOLE WIRE BRUSHER OPENING NOTE RECEIVED PT ASLEEP IN BED, EASILY AROUSED. A/O X1-2, REORIENTED PT NEEDED. ON RA, TOLERATING WELL. NO SOB NOTED. NOT IN ANY SIGN OF RESPIRATORY DISTRESS. ON CARDIAC TELE MONITOR WITH CURRENT READING OF AFIB CONTROLLED, HR 82. NO C/O CARDIAC DISTRESS VOICED AT THIS TIME. IV ACCESS IN MANDIE MIDLINE INTACT, AND PATENT WITH NS INFUSING AT 50ML/HR. SAFETY MEASURES IN PLACE: BED IN LOWEST AND LOCKED POSITION, SIDE RAILS UPX2, BED ALARM ON AND CALL LIGHT WITHIN REACH. WILL CONTINUE TO MONITOR PT.
[2021-11-19 07:41] LABS: HEMATOCRIT 15 % (33-45); HEMOGLOBIN 4.4 g/dL (11.5-14.8)
--- NOTE | 2021-11-19 07:47 | NUR ---
RN NOTES: ABLE TO SLEEP AND REST, NO PAIN OR DISCOMFORT NO SIGN OF RESPIRATORY DISTRESS, KEPT MONIOTRED, NPO FOR POSSIBLE COLONOSCOPY, TO CALL IN THE MORNING TO F/U, STILL PENDING FOR GYNE F/U REGARDING HER IMAGING RESULTS, TURNING AND REPOSITIONING DONE, OFF LOADING DONE, IVF ONGOING, ENDORSED FOR CONTINUITY OF CARE. Addendum: 11/19/21 at 8524 by CLARKE CELIS RN ADDED NOTES: ON CONSULTANT MACI WITH PVC RATE-88.
[2021-11-19 08:00] VITALS: BP 110/54
[2021-11-19] MEDS: ENSURE CLEAR 237 ML LIQUID (MIX BERRY) PO SCH ×3 (08:00→16:22)
--- NOTE | 2021-11-19 08:00 | NUR ---
RN ANGELIQUE RECEIVED A CALL FROM [facility] REPORTING PT'S CRITICAL LAB VALUE OF HEMOGLOBIN 4.4 AND [address]CRIT [address] DERAS AND MADE HIM AWARE OF CRITICAL LAB WITH NO NEW ORDER AT THIS TIME. PER MD HE WILL SEE THE PT.
[2021-11-19] MEDS: DIGOXIN 0.125 MG TABLET PO SCH (08:22)
[2021-11-19] MEDS: PROSTAT (PYXIS) 30 ML UDC PO SCH (08:23)
[2021-11-19] MEDS: NEUTRA PHOS 1 POWD.PACKET PO SCH ×2 (08:23→16:27)
[2021-11-19] MEDS: MULTIVIT W/MINERALS 1 TAB TABLET PO SCH (08:23)
[2021-11-19] MEDS: METOPROLOL SUCCINATE 50 MG TAB.SR.24H PO SCH (08:23)
[2021-11-19] MEDS: MEGESTROL ACETATE SUSP 400 MG/10 ML UDC PO SCH ×2 (08:23→16:26)
--- NOTE | 2021-11-19 09:22 | NUR ---
RN NOTE RECEIVED A CALL FROM DR. MONSIVAIS WITH ORDERS TO GIVE PT 4 TABS OF DULCOLAX 5MG PO ONCE. AND AFTER AN HOUR TO GIVE 238 GM MIRALAX IN 64 OZ WATER ONCE PO THEN NPO AFTER MIDNIGHT.
[2021-11-19] MEDS ORDERED: BISACODYL (5 MG) 5 MG TABLET.DR PO ONE (09:30)
[2021-11-19] MEDS ORDERED: POTASSIUM CHLORIDE 20 MEQ TAB.PRT.SR PO SCH (10:00)
[2021-11-19 10:31] LABS: LYMPHOCYTES % (MANUAL) 12 % (16-48); MONOCYTES % (MANUAL) 5 % (0-11.0); NEUTROPHILS % (MANUAL) 83 (42-76)
[2021-11-19] MEDS ORDERED: POLYETHYLENE GLYCOL 3350 17 GM POWD.PACK PO ONE (11:00)
[2021-11-19 12:02] VITALS: BP 116/69
[2021-11-19] MEDS: EPOETIN ALFA-EPBX 10,000 UNIT/ML VIAL IV SCH (14:59)
[2021-11-19 16:00] VITALS: BP 121/57
--- NOTE | 2021-11-19 16:27 | NUR ---
RN NOTE PT REFUSED NEUTRA PHOS PACKET AND MEGACE SUSP SCHEDULED AT 1700. PT AGREED TO TAKE MEDICATIONS AT FIRST BUT REFUSED WHEN ABOUT TO ADMINISTER MEDICATION. EXPLAINED RISK AND BENEFITS STILL STRONGLY REFUSED.
--- NOTE | 2021-11-19 19:15 | NUR ---
RN OPENING NOTE PATIENT IN BED, AWAKE. PATIENT IS A/O X 1-2 AT THIS TIME. PATIENT IS CURRENTLY ON RA, TOLERATING WELL. NO SOB OR REPARATORY DISTRESS NOTED. TELE MONITOR READS AFIB CONTROLLED AT 79 BPM. PATIENT HAS A R UPPER ARM MIDLINE, PATENT AND INTACT WITH NS AT 50 ML/HR ONGOING. PATIENT TO BE NPO AT MIDNIGHT FOR COLONOSCOPY TOMORROW. SAFETY MEASURES IN PLACE, BED LOCKED AND IN LOWEST POSITION, CALL LIGHT WITHIN REACH, SIDE RAILS UP. WILL MONITOR PATIENT CLOSELY.
--- NOTE | 2021-11-19 19:17 | NUR ---
DIRECTOR OF PHYSICAL EDUCATION CLOSING NOTE PT ASLEEP IN BED, EASILY AROUSED. A/O X1-2, REORIENTED PT NEEDED. ON RA, TOLERATING WELL. NO SOB NOTED. NOT IN ANY SIGN OF RESPIRATORY DISTRESS. ON CARDIAC TELE MONITOR WITH CURRENT READING OF AFIB CONTROLLED, HR 84. NO C/O CARDIAC DISTRESS VOICED AT THIS TIME. IV ACCESS IN MANDIE MIDLINE INTACT, AND PATENT WITH NS INFUSING AT 50ML/HR. ALL NEEDS ATTENDED. KEPT CLEAN AND COMFORTABLE. SAFETY MEASURES IN PLACE: BED IN LOWEST AND LOCKED POSITION, SIDE RAILS UPX2, BED ALARM ON AND CALL LIGHT WITHIN REACH. ENDORSED TO SKI PATROL OFFICER NURSE FOR TOMI.
[2021-11-19 20:00] VITALS: BP 119/57
[2021-11-19] MEDS: SENNOSIDES 8.6 MG TABLET PO SCH (21:46)
[2021-11-19] MEDS ORDERED: IV D5/0.45 NACL 1,000 ML IV SCH (22:30)
[2021-11-20] VITALS: BP 107/51
--- NOTE | 2021-11-20 00:12 | NUR ---
PATIENT PULLED OUT MANDIE MIDLINE, WILL RE INSERT NEW IV ACCESS.
--- NOTE | 2021-11-20 00:44 | NUR ---
RFA 22G IV ACCESS ESTABLISHED. PATENT AND INTACT, WRAPPED IN KERLIX TO PREVENT PATIENT FROM REMOVING IV LINE
[2021-11-20 04:00] VITALS: BP 144/52
[2021-11-20 06:07] LABS: CALCIUM, SERUM 7.8 mg/dL (8.5-10.1); CARBON DIOXIDE 20 mmol/L (21-32); CHLORIDE 119 mmol/L (98-107); GLUCOSE 106 mg/dL (74-106); SODIUM SERUM 152 mmol/L (136-145); UREA NITROGEN, BLOOD 10 mg/dL (7-18)
[2021-11-20 06:13] LABS: POTASSIUM 2.6 mmol/L (3.5-5.1)
--- NOTE | 2021-11-20 06:39 | NUR ---
NOTIFIED BY [facility] THAT POTASSIUM LEVEL IS 2.6. PAGED DR. BRAEDEN [facility].
--- NOTE | 2021-11-20 06:51 | NUR ---
RN CLOSING NOTE PATIENT IN BED, AWAKE. PATIENT IS A/O X 1-2 AT THIS TIME. PATIENT IS CURRENTLY ON RA, TOLERATING WELL. NO SOB OR REPARATORY DISTRESS NOTED. TELE MONITOR READS AFIB CONTROLLED AT 80 BPM. PATIENT HAS A R FA 22G, PATENT AND INTACT WITH D5 1/2NS AT 100 ML/HR ONGOING. PATIENT NPO AT THIS TIME. SAFETY MEASURES IN PLACE, BED LOCKED AND IN LOWEST POSITION, CALL LIGHT WITHIN REACH, SIDE RAILS UP. ALL NEEDS MET AND ATTENDED. ALL ORDERS CARRIED OUT. WILL ENDORSE TO DAY SHIFT NURSE FOR TOMI.
--- NOTE | 2021-11-20 07:27 | NUR ---
MANAGEMENT TRAINEE MARKETING OPENING NOTE RECEIVED PT ASLEEP IN BED, EASILY AROUSED. A/O X1, REORIENTED PT NEEDED. ON RA, TOLERATING WELL. NO SOB NOTED. NOT IN ANY SIGN OF RESPIRATORY DISTRESS. ON CARDIAC TELE MONITOR WITH CURRENT READING OF AFIB CONTROLLED, HR 78. NO C/O CARDIAC DISTRESS VOICED AT THIS TIME. IV ACCESS IN MANDIE MIDLINE INTACT, AND PATENT WITH NS INFUSING AT 50ML/HR. SAFETY MEASURES IN PLACE: BED IN LOWEST AND LOCKED POSITION, SIDE RAILS UPX2, BED ALARM ON AND CALL LIGHT WITHIN REACH. WILL CONTINUE TO MONITOR PT.
[2021-11-20 08:00] VITALS: BP 121/64
[2021-11-20] MEDS: ENSURE CLEAR 237 ML LIQUID (MIX BERRY) PO SCH ×3 (08:00→17:00)
[2021-11-20] MEDS ORDERED: POTASSIUM CHLORIDE 20 MEQ TAB.PRT.SR PO SCH (08:00)
[2021-11-20] MEDS: POTASSIUM CL. PREMIX PERIPHER. 50 ML IV SCH ×10 (08:02→17:56)
[2021-11-20] MEDS: NEUTRA PHOS 1 POWD.PACKET PO SCH ×2 (09:00→17:00)
[2021-11-20] MEDS: MEGESTROL ACETATE SUSP 400 MG/10 ML UDC PO SCH ×2 (09:00→17:00)
[2021-11-20] MEDS: PROSTAT (PYXIS) 30 ML UDC PO SCH (09:00)
[2021-11-20] MEDS ORDERED: POTASSIUM CHLORIDE 10 MEQ/50 ML PREMIXED IVPB FOR PERIPHERAL LINE IV ONE (09:00)
[2021-11-20] MEDS: MULTIVIT W/MINERALS 1 TAB TABLET PO SCH (09:00)
[2021-11-20] MEDS: METOPROLOL SUCCINATE 50 MG TAB.SR.24H PO SCH (09:00)
[2021-11-20] MEDS: DIGOXIN 0.125 MG TABLET PO SCH (09:00)
[2021-11-20] MEDS: Potassium Chloride 20 MEQ in IV D5W 1,000 ML IV SCH ×2 (09:49→22:58)
[2021-11-20 12:00] VITALS: BP 128/59
--- NOTE | 2021-11-20 13:50 | NUR ---
RN NOTE RECEIVED A CALL FROM DR. GENTILE, ANESTHESIOLOGIST. TO RECHECK POTASSIUM LEVEL TODAY AT 1630.
[2021-11-20] MEDS ORDERED: ANESTHESIA TRAY IN PYXIS 1 EA TRAY MC ONE (14:06)
--- NOTE | 2021-11-20 18:50 | NUR ---
CAPTAIN CANNERY TENDER CLOSING NOTE PT ASLEEP IN BED, EASILY AROUSED. A/O X1, REORIENTED PT NEEDED. ON RA, TOLERATING WELL. NO SOB NOTED. NOT IN ANY SIGN OF RESPIRATORY DISTRESS. ON CARDIAC TELE MONITOR WITH CURRENT READING OF AFIB CONTROLLED, HR 82. NO C/O CARDIAC DISTRESS VOICED AT THIS TIME. IV ACCESS IN MANDIE MIDLINE G #18 INTACT, AND PATENT WITH POTASSIUM CHLORIDE IV IN D5W INFUSING AT 75ML/HR. ALL NEEDS ATTENDED. KEPT CLEAN AND COMFORTABLE. SAFETY MEASURES IN PLACE: BED IN LOWEST AND LOCKED POSITION, SIDE RAILS UPX2, BED ALARM ON AND CALL LIGHT WITHIN REACH. WILL ENDORSED TO FLOWER GROWER NURSE FOR TOMI.
--- NOTE | 2021-11-20 19:23 | NUR ---
RN OPENING NOTE RECEIVED PATIENT IN BED, A/OX2. NO S/S OF APPARENT DISTRESS IN ROOM AIR. DENIES PAIN NOR DISCOMFORT AT THIS TIME. READING A-FIB CONTROLLED RATE 72 BPM. PATIENT R.UA MIDLINE RUNNING POTASSIUM CHL. 20MEQ IN D5W @75MLS/HR. PATIENT IS CURRENTLY NPO AND FOR COLONOSCOPY SUPPOSEDLY TONIGHT, WILL CONTINUE WITH PLAN OF CARE FOR PATIENT. SAFETY IN PLACE AND RE-ORIENTED AND ENCOURAGED WITH THE USE OF CALL LIGHT.
[2021-11-20 20:00] VITALS: BP 112/62
[2021-11-20] MEDS: SENNOSIDES 8.6 MG TABLET PO SCH (22:00)
[2021-11-20 23:51] VITALS: BP 112/54
[2021-11-21 05:00] VITALS: BP 110/59
[2021-11-21 06:37] LABS: CALCIUM, SERUM 7.7 mg/dL (8.5-10.1); CARBON DIOXIDE 21 mmol/L (21-32); CHLORIDE 120 mmol/L (98-107); CREATININE 0.8 mg/dL (0.6-1.3); GLUCOSE 106 mg/dL (74-106); POTASSIUM 3.4 mmol/L (3.5-5.1); SODIUM SERUM 149 mmol/L (136-145); UREA NITROGEN, BLOOD 7 mg/dL (7-18)
[2021-11-21 06:43] LABS: IRON, SERUM 24 ug/dl (50-175); TOTAL IRON BINDING CAPACITY 206 ug/dl (250-450)
[2021-11-21 06:59] LABS: FERRITIN 212 ng/mL (8-388)
--- NOTE | 2021-11-21 07:05 | NUR ---
YARN INSPECTOR CLOSING PATIENT IN BED, A/OX2. NO S/S OF APPARENT DISTRESS ON ROOM AIR. DENIES ANY PAIN NOR DISCOMFORT AT THIS TIME. READING CONTROLLED A-FIB THROUGHOUT SHIFT. IV POTASSIUM IN D5W RUNNING @75MLS/HR. ALL NEEDS ATTENDED. NPO SINCE MIDNIGHT. IN FOR COLONOSCOPY AND EGD TODAY. SAFETY KEPT IN PLACE THE WHOLE SHIFT. WILL ENDORSE TO MORNING SHIFT RN FOR CONTINUITY OF CARE.
[2021-11-21 07:07] LABS: IMMUNOGLOBULIN A, SERUM 416 mg/dL (64-422); IMMUNOGLOBULIN G, SERUM 834 mg/dL (586-1602); IMMUNOGLOBULIN M, SERUM 107 mg/dL (26-217)
[2021-11-21 07:08] LABS: MEAN CORPUSCULAR HGB CONC 29 g/dl (31.0-36.0); MEAN CORPUSCULAR VOLUME 68 fL (82-100); PLATELET COUNT (AUTO) 236 K/uL (150-450); RED BLOOD CELL COUNT(AUTO) 2.21 MIL/uL (4.0-5.2); WHITE BLOOD COUNT (AUTO) 5.7 K/uL (4.3-11.0)
--- NOTE | 2021-11-21 07:20 | NUR ---
PLATFORM ATTENDANT OPENING NOTES RECEIVED PATIENT IN BED, A/O X2. STABLE ON RA. DENIES ANY PAIN OR DISCOMFORT AT THIS TIME. EXTERNAL MONITORING ANALYST READING CONTROLLED A-FIB 70'S AT THIS TIME. IV POTASSIUM IN D5W RUNNING @75 MLS/HR. NPO SINCE MIDNIGHT. PENDING COLONOSCOPY AND EGD TODAY. CONSENTS ARE SIGNED. SAFETY PRECAUTIONS IN PLACE. WILL CONTINUE TO MONITOR.
[2021-11-21 07:46] LABS: HEMATOCRIT 15 % (33-45); HEMOGLOBIN 4.3 g/dL (11.5-14.8)
[2021-11-21] MEDS: ENSURE CLEAR 237 ML LIQUID (MIX BERRY) PO SCH ×3 (08:00→17:35)
[2021-11-21] MEDS ORDERED: POTASSIUM CHLORIDE 20 MEQ TAB.PRT.SR PO ONE (09:00)
[2021-11-21] MEDS: METOPROLOL SUCCINATE 50 MG TAB.SR.24H PO SCH (09:00)
[2021-11-21] MEDS: DIGOXIN 0.125 MG TABLET PO SCH (09:00)
[2021-11-21] MEDS: NEUTRA PHOS 1 POWD.PACKET PO SCH ×2 (09:00→17:35)
[2021-11-21] MEDS ORDERED: POTASSIUM CHLORIDE 20 MEQ TAB.PRT.SR PO SCH (09:00)
[2021-11-21] MEDS: PROSTAT (PYXIS) 30 ML UDC PO SCH (09:00)
[2021-11-21] MEDS: MEGESTROL ACETATE SUSP 400 MG/10 ML UDC PO SCH ×2 (09:00→17:35)
[2021-11-21] MEDS: MULTIVIT W/MINERALS 1 TAB TABLET PO SCH (09:00)
[2021-11-21 10:12] LABS: EOSINOPHILS % (MANUAL) 2 % (0-4); LYMPHOCYTES % (MANUAL) 24 % (16-48); MONOCYTES % (MANUAL) 4 % (0-11.0); NEUTROPHILS % (MANUAL) 70 (42-76)
[2021-11-21 11:07] LABS: *SPE A/G RATIO 0.9 (0.7-1.7); *SPE ALPHA-1-GLOBULIN 0.2 g/dL (0.0-0.4); *SPE ALPHA-2-GLOBULIN 0.6 g/dL (0.4-1.0); *SPE M-SPIKE Not Observed g/dL (Not Observed)
[2021-11-21 12:00] VITALS: BP 99/54
--- NOTE | 2021-11-21 12:00 | NUR ---
RN NOTES PATIENT SEEN BY GI, DR LONG. COLONOSCOPY CANCELLED. PATIENT AND PATIENTS FAMILY NOTIFIED.
--- NOTE | 2021-11-21 17:00 | NUR ---
RN NOTES OVER THE PHONE CONSENT PROVIDED BY PATIENTS BROTHER (FER), FOR PATIENT TO HAVE CT OF ABDOMEN, CHEST AND PELVIS WITH CONTRAST DONE. 2ND RN WITNESS PROVIDED BY CHARGE NURSE, ELVIS. CONSENTS ARE IN PATIENTS CHART.
[2021-11-21 17:19] VITALS: BP 118/53
--- NOTE | 2021-11-21 18:33 | NUR ---
RN CLOSING NOTES PATIENT STABLE IN ROOM WITH COMPANY AT BEDSIDE. A/O X1. ON RA WITH NO SOB OR DISTRESS NOTED. DENIES PAIN AT THIS TIME. ALL NEEDS MET. SAFETY PRECAUTIONS MAINTAINED. WILL ENDORSE TO THE ART CONSERVATOR NURSE FOR TOMI
[2021-11-21 20:00] VITALS: BP 110/52
--- NOTE | 2021-11-21 20:37 | NUR ---
MS RN OPENING NOTES RECEIVED PATIENT IN BED, A/O X1-2. STABLE ON RA. DENIES ANY PAIN OR DISCOMFORT AT THIS TIME.BILATERAL SIDE RIALS UP FOR SAFETY HOB ELEVATED FOR ASPIRATION PRECAUTIONS. BED IN LOWEST POSITION BED ALARM BIOMETRICS EXPERIMENTALIST LIGHT AND TABLE WITHIN REACH. ALL NURSING NEED MET AT THIS TIME. WILL CONTINUE TO MONITOR.
[2021-11-21] MEDS: SENNOSIDES 8.6 MG TABLET PO SCH (21:39)
[2021-11-21] MEDS ORDERED: IV PREMIX D5W + KCL 1,000 ML IV SCH (22:00)
[2021-11-21] MEDS ORDERED: IV PREMIX D5W + KCL 1,000 ML IV ONE (22:05)
[2021-11-22 06:12] LABS: BASOPHILS % (AUTO) 0.6 % (0.0-2.0); EOSINOPHILS % (AUTO) 1.5 % (0.0-6.0); LYMPHOCYTES # (AUTO) 1.8 K/uL (0.8-4.8); LYMPHOCYTES % (AUTO) 31.7 % (20.0-44.0); MEAN CORPUSCULAR HGB CONC 27 g/dl (31.0-36.0); MEAN CORPUSCULAR VOLUME 74 fL (82-100); MONOCYTES # (AUTO) 0.4 K/uL (0.1-1.30); MONOCYTES % (AUTO) 7.8 % (2.0-12.0); NEUTROPHILS # (AUTO) 3.2 K/uL (1.8-8.9); NEUTROPHILS % (AUTO) 58.4 % (43.0-81.0); PLATELET COUNT (AUTO) 104 K/uL (150-450); RED BLOOD CELL COUNT(AUTO) 2.27 MIL/uL (4.0-5.2); WHITE BLOOD COUNT (AUTO) 5.6 K/uL (4.3-11.0)
[2021-11-22 06:20] LABS: HEMATOCRIT 17 % (33-45); HEMOGLOBIN 4.6 g/dL (11.5-14.8)
--- NOTE | 2021-11-22 06:40 | NUR ---
MS RN OPENING NOTES RECEIVED PATIENT IN BED, A/O X1-2. STABLE ON RA. DENIES ANY PAIN OR DISCOMFORT AT THIS TIME.BILATERAL SIDE RIALS UP FOR SAFETY HOB ELEVATED FOR ASPIRATION PRECAUTIONS. BED IN LOWEST POSITION BED ALARM ORACLE SOA DEVELOPER LIGHT AND TABLE WITHIN REACH. PT NPO SINCE MIDNIGHT FOR CT WITH CONTRAST. ALL NURSING NEED MET AT THIS TIME. WILL ENDORSE CARE.
[2021-11-22 07:13] LABS: CALCIUM, SERUM 7.5 mg/dL (8.5-10.1); CREATININE 0.8 mg/dL (0.6-1.3); MAGNESIUM 2.1 mg/dL (1.8-2.4); POTASSIUM 3.1 mmol/L (3.5-5.1)
--- NOTE | 2021-11-22 07:20 | NUR ---
MS RN OPENING NOTES RECEIVED PATIENT IN BED, A/O X1-2. STABLE ON RA. DENIES ANY PAIN OR DISCOMFORT AT THIS TIME. MANDIE MIDLINE INTACT AND PATENT WITH NS 20MEQ KCL RUNNING @ 75ML/HR. SAFETY PRECAUTIONS IN PLACE. BED IN LOWEST POSITION BED ALARM TRANSPLANT CASE MANAGER LIGHT AND TABLE WITHIN REACH. PT NPO SINCE MIDNIGHT FOR CT WITH CONTRAST. WILL CONTINUE TO MONITOR PATIENT
[2021-11-22] MEDS: ENSURE CLEAR 237 ML LIQUID (MIX BERRY) PO SCH ×4 (07:57→17:07)
[2021-11-22 08:00] VITALS: BP 112/60
[2021-11-22] MEDS: PROSTAT (PYXIS) 30 ML UDC PO SCH (08:19)
[2021-11-22] MEDS: MULTIVIT W/MINERALS 1 TAB TABLET PO SCH ×2 (08:26→08:46)
[2021-11-22] MEDS: METOPROLOL SUCCINATE 50 MG TAB.SR.24H PO SCH (08:26)
[2021-11-22] MEDS: FOLIC ACID 1 MG TABLET PO SCH (08:26)
[2021-11-22] MEDS: DIGOXIN 0.125 MG TABLET PO SCH (08:26)
[2021-11-22] MEDS: MEGESTROL ACETATE SUSP 400 MG/10 ML UDC PO SCH ×3 (08:26→17:00)
[2021-11-22] MEDS: NEUTRA PHOS 1 POWD.PACKET PO SCH ×3 (08:26→17:00)
[2021-11-22] MEDS: CYANOCOBALAMIN 500 MCG TABLET PO SCH (08:47)
--- NOTE | 2021-11-22 08:47 | NUR ---
RN NOTES PATIENT APPEARS A LITTLE MORE LETHARGIC THAN INITIAL ASSESSMENT THIS MORNING. ONLY ADHERED TO TAKING A COUPLE OF MEDICATIONS THIS AM. REFUSES TO TAKE ANYMORE MEDICATIONS THIS MORNING. EDUCATED PATIENT ON IMPORTANCE OF MEDICATIONS AND PATIENT DOES NOT WANT ACCEPT. WILL CONTINUE TO MONITOR AND LET MD KNOW.
[2021-11-22] MEDS ORDERED: POTASSIUM CHLORIDE 20 MEQ TAB.PRT.SR PO ONE (09:00)
[2021-11-22] MEDS ORDERED: EPOETIN ALFA (20,000 UNIT) 20,000 UNIT/ML VIAL SQ ONE (10:00)
[2021-11-22] MEDS ORDERED: IV NS 0.9% 250 ML IV ONE (11:10)
[2021-11-22] MEDS ORDERED: IOHEXOL-300 100 ML VIAL IV ONE (11:10)
--- NOTE | 2021-11-22 11:50 | NUR ---
RN NOTES PATIENT OFF UNIT FOR CT PROCEDURE
[2021-11-22] MEDS: SOD FERRIC GLUC 125 MG in IV NS 0.9% 100 ML IV SCH (14:21)
[2021-11-22] MEDS ORDERED: EPOETIN ALFA-EPBX 20,000 UNIT/ML VIAL SQ SCH (15:00)
[2021-11-22 15:59] VITALS: BP 108/58
--- NOTE | 2021-11-22 17:08 | NUR ---
RN NOTES PATIENT REFUSES TO TAKE SUPPLEMENTAL PO MEDICATIONS. STATES, "I DO NOT NORMALLY TAKE THIS MANY MEDICATIONS. I DON'T NEED THEM". PATIENT REMAINS A/O X1-2 WITH FORGETFULNESS. PATIENT ADHERES TO INJECTIONS AND IV MEDICATIONS BUT HAS POOR PO INTAKE. WILL CONTINUE TO MONITOR PATIENT AND INTERVENE ACCORDINGLY
--- NOTE | 2021-11-22 17:44 | NUR ---
RN NOTES RECEIVED CRITICAL RESULTS FROM CT CHEST COMPLETED TODAY. PATIENT IS POSITIVE FOR PE IN BOTH LOWER LOBES AND MIDDLE RIGHT LOBE. WILL NOTIFY DOCTOR AND FOLLOW ORDERS. PATIENT CURRENTLY NOT EXPERIENCING RESPIRATORY DISTRESS ON RA. WILL CONTINUE MONITORING
--- NOTE | 2021-11-22 19:15 | NUR ---
RECEIVED PATIENT IN BED, ALERT/ORIENTED X2-3, ROOM AIR, GENERALIZED WEAKNESS, BEDREST. EATING DINNER, BROTHER AND FRIENDS ARE AT THE BEDSIDE, KEPT SAFE, WILL CONTINUE TO MONITOR.
--- NOTE | 2021-11-22 19:27 | NUR ---
RN CLOSING NOTES PATIENT IN BED WITH NO COMPLAINTS AT THIS TIME. ALL NEEDS MET. SAFETY PRECAUTIONS IN PLACE. ENDORSED REPORT TO THE PROSTHETICS LAB TECHNICIAN NURSE FOR TOMI
--- NOTE | 2021-11-22 19:40 | NUR ---
NEW ORDER FROM DR. KENDRICK CT OF ABDOMEN AND PELVIS. RECENT CT OF ABDOMEN DONE 11/22/21, SENT COPY OF RESULT TO DR. KENDRICK.
--- NOTE | 2021-11-22 19:47 | NUR ---
DR. KENDRICK MADE AWARE OF CT ABDOMEN RESULT, PATIENT HAS PE. DR. KENDRICK MADE AWARE OF PATIENT'S H/H, 4.09/26. DR. KENDRICK WILL TALK TO PATIENT WELL DR. DERAS
[2021-11-22 20:00] VITALS: BP 117/81
--- NOTE | 2021-11-22 21:12 | NUR ---
SEEN BY DR. KENDRICK, TALKED ABOUT THE NEED FOR BLOOD TRANSFUSION DUE TO SEVERE ANEMIA AND NEED FOR ANTICOAGULATION DUE TO PULMONARY EMBOLISM, PATIENT STILL REFUSED.
[2021-11-22] MEDS: SENNOSIDES 8.6 MG TABLET PO SCH (22:00)
[2021-11-23 06:35] LABS: BASOPHILS % (AUTO) 0.7 % (0.0-2.0); EOSINOPHILS % (AUTO) 1.1 % (0.0-6.0); LYMPHOCYTES # (AUTO) 1.8 K/uL (0.8-4.8); LYMPHOCYTES % (AUTO) 37.2 % (20.0-44.0); MEAN CORPUSCULAR HGB CONC 30 g/dl (31.0-36.0); MEAN CORPUSCULAR VOLUME 69 fL (82-100); MONOCYTES # (AUTO) 0.3 K/uL (0.1-1.30); MONOCYTES % (AUTO) 5.4 % (2.0-12.0); NEUTROPHILS # (AUTO) 2.7 K/uL (1.8-8.9); NEUTROPHILS % (AUTO) 55.6 % (43.0-81.0); PLATELET COUNT (AUTO) 165 K/uL (150-450); RED BLOOD CELL COUNT(AUTO) 2.55 MIL/uL (4.0-5.2); WHITE BLOOD COUNT (AUTO) 4.9 K/uL (4.3-11.0)
[2021-11-23 06:43] LABS: HEMATOCRIT 18 % (33-45); HEMOGLOBIN 5.2 g/dL (11.5-14.8)
--- NOTE | 2021-11-23 06:50 | NUR ---
RN NOTES LETHARGIC, BEDREST, STABLE ON ROOM AIR, NO COMPLAIN OF PAIN, REFUSED SENNA, LAST BM 11/20/21. RECEIVED LAB RESULT, H/H 5.2, INCREASED HGB FROM 11/22/21. PER CONVERSATION, PATIENT AND FAMILY REFUSED BLOOD TRANSFUSION, PATIENT ON FERRITIN AND EPOGEN.
[2021-11-23 07:14] LABS: CALCIUM, SERUM 7.3 mg/dL (8.5-10.1); CARBON DIOXIDE 19 mmol/L (21-32); CHLORIDE 114 mmol/L (98-107); CREATININE 0.8 mg/dL (0.6-1.3); GLUCOSE 83 mg/dL (74-106); MAGNESIUM 2.1 mg/dL (1.8-2.4); PHOSPHORUS 2.5 mg/dL (2.5-4.9); SODIUM SERUM 144 mmol/L (136-145); UREA NITROGEN, BLOOD 6 mg/dL (7-18)
--- NOTE | 2021-11-23 07:50 | NUR ---
RN OPENING NOTE PATIENT AWAKE IN BED RESTING. A/O X 2. NO PAIN NOTED AT THIS TIME. ON ROOM AIR, NO DISTRESS OR SHORTNESS OF BREATH NOTED. IV ACCESS MANDIE MIDLINE, INTACT, PATENT AND FLUSHING WELL. FALL AND SAFETY MEASURES IN PLACE, BED ALARM ON, BED IN LOW AND LOCK POSITION, CALL LIGHT AND TABLE WITHIN EASY REACH, SIDE RAILS UP X2. WILL CONTINUE TO MONITOR.
[2021-11-23 08:00] VITALS: BP 109/60
[2021-11-23] MEDS: ENSURE CLEAR 237 ML LIQUID (MIX BERRY) PO SCH ×3 (08:00→17:13)
[2021-11-23] MEDS: MULTIVIT W/MINERALS 1 TAB TABLET PO SCH (08:16)
[2021-11-23] MEDS: NEUTRA PHOS 1 POWD.PACKET PO SCH (08:16)
[2021-11-23] MEDS: PROSTAT (PYXIS) 30 ML UDC PO SCH (08:16)
[2021-11-23] MEDS: POTASSIUM CHLORIDE 20 MEQ TAB.PRT.SR PO SCH ×5 (08:17→12:25)
[2021-11-23] MEDS: MEGESTROL ACETATE SUSP 400 MG/10 ML UDC PO SCH ×2 (08:17→17:13)
[2021-11-23] MEDS: CYANOCOBALAMIN 500 MCG TABLET PO SCH (08:17)
[2021-11-23] MEDS: FOLIC ACID 1 MG TABLET PO SCH (08:17)
[2021-11-23] MEDS: DIGOXIN 0.125 MG TABLET PO SCH (08:18)
[2021-11-23] MEDS: METOPROLOL SUCCINATE 50 MG TAB.SR.24H PO SCH (08:18)
[2021-11-23 08:37] LABS: LYMPHOCYTES % (MANUAL) 21 % (16-48); MONOCYTES % (MANUAL) 5 % (0-11.0); NEUTROPHILS % (MANUAL) 74 (42-76)
[2021-11-23] MEDS: SOD FERRIC GLUC 125 MG in IV NS 0.9% 100 ML IV SCH (14:25)
[2021-11-23 16:25] VITALS: BP 101/52
--- NOTE | 2021-11-23 18:31 | NUR ---
RN CLOSING NOTE PATIENT AWAKE IN BED RESTING. A/O X 2. NO PAIN NOTED AT THIS TIME. ON ROOM AIR, NO DISTRESS OR SHORTNESS OF BREATH NOTED. IV ACCESS MANDIE MIDLINE, INTACT, PATENT AND FLUSHING WELL. ALL SCHEDULE MEDICATIONS ADMINISTERED. FALL AND SAFETY MEASURES IN PLACE, BED ALARM ON, BED IN LOW AND LOCK POSITION, CALL LIGHT AND TABLE WITHIN EASY REACH, SIDE RAILS UP X2. WILL ENDORSE TO PRODUCT SAFETY AND STANDARDS ENGINEER.
--- NOTE | 2021-11-23 19:48 | NUR ---
RN OPENING NOTE PATIENT IN BED AAOX2.ON ROOM AIR JUAN WELL NO SIGN SOB/DISTRESS NOTED.BREATHING EVEN AND UNLABORED.IV ACCESS MANDIE MIDLINE, INTACT, PATENT AND FLUSHING WELL. FALL AND SAFETY MEASURES IN PLACE, BED ALARM ON, BED IN LOW AND LOCK POSITION, CALL LIGHT AND TABLE WITHIN EASY REACH, SIDE RAILS UP X2. WILL CONTINUE TO MONITOR.
[2021-11-23 20:00] VITALS: BP 101/49
[2021-11-23] MEDS: SENNOSIDES 8.6 MG TABLET PO SCH (21:25)
[2021-11-24 03:38] VITALS: BP 109/57
--- NOTE | 2021-11-24 06:13 | NUR ---
RN CLOSING NOTE;321 PATIENT IN BED AAOX2.ON ROOM AIR JUAN WELL NO SIGN SOB/DISTRESS NOTED.BREATHING EVEN AND UNLABORED.DUE MEDS GIVEN ORDER.IV ACCESS MANDIE MIDLINE,INTACT, PATENT AND FLUSHING WELL.ALL NEEDS ATTENDED. FALL AND SAFETY MEASURES IN PLACE, BED ALARM ON, BED IN LOW AND LOCK POSITION, CALL LIGHT AND TABLE WITHIN EASY REACH, SIDE RAILS UP X2. WILL ENDORSED TO NEXT SHIFT.
[2021-11-24 06:35] LABS: CALCIUM, SERUM 7.4 mg/dL (8.5-10.1); CREATININE 0.8 mg/dL (0.6-1.3)
--- NOTE | 2021-11-24 07:20 | NUR ---
RN OPENING NOTES RECEIVED PATIENT IN BED, AWAKE, A/O X2, VERBALLY RESPONSIVE. NO SIGNS OF ACUTE DISTRESS NOTED. ON ROOM AIR, NO SOB NOTED, BREATHING EVEN AND UNLABORED. NOTED WITH RIGHT UPPER ARM MIDLINE #18G, INTACT AND PATENT, SALINE LOCKED. DENIES ANY PAIN AT THIS TIME. SAFETY MEASURE IN PLACE. BED IN LOWEST AND LOCKED POSITION, SIDE RAILS UP X2, CALL LIGHT PLACED WITHIN EASY REACH. WILL, CONTINUE TO MONITOR PATIENT.
[2021-11-24 08:00] VITALS: BP 108/50
[2021-11-24 08:03] LABS: BASOPHILS % (AUTO) 0.3 % (0.0-2.0); EOSINOPHILS % (AUTO) 0.6 % (0.0-6.0); LYMPHOCYTES # (AUTO) 1.3 K/uL (0.8-4.8); LYMPHOCYTES % (AUTO) 23.7 % (20.0-44.0); MEAN CORPUSCULAR HGB CONC 29 g/dl (31.0-36.0); MEAN CORPUSCULAR VOLUME 70 fL (82-100); MONOCYTES # (AUTO) 0.5 K/uL (0.1-1.30); MONOCYTES % (AUTO) 8.3 % (2.0-12.0); NEUTROPHILS # (AUTO) 3.7 K/uL (1.8-8.9); NEUTROPHILS % (AUTO) 67.1 % (43.0-81.0); PLATELET COUNT (AUTO) 147 K/uL (150-450); RED BLOOD CELL COUNT(AUTO) 2.41 MIL/uL (4.0-5.2); WHITE BLOOD COUNT (AUTO) 5.5 K/uL (4.3-11.0)
[2021-11-24] MEDS: DIGOXIN 0.125 MG TABLET PO SCH (08:06)
[2021-11-24] MEDS: MULTIVIT W/MINERALS 1 TAB TABLET PO SCH (08:06)
[2021-11-24] MEDS: ENSURE CLEAR 237 ML LIQUID (MIX BERRY) PO SCH ×2 (08:06→11:55)
[2021-11-24] MEDS: CYANOCOBALAMIN 500 MCG TABLET PO SCH (08:06)
[2021-11-24] MEDS: FOLIC ACID 1 MG TABLET PO SCH (08:06)
[2021-11-24] MEDS: MEGESTROL ACETATE SUSP 400 MG/10 ML UDC PO SCH ×2 (08:06→16:27)
[2021-11-24 08:13] LABS: HEMATOCRIT 17 % (33-45)
[2021-11-24] MEDS: METOPROLOL SUCCINATE 50 MG TAB.SR.24H PO SCH (08:13)
[2021-11-24] MEDS: PROSTAT (PYXIS) 30 ML UDC PO SCH (08:13)
[2021-11-24] MEDS: SOD FERRIC GLUC 125 MG in IV NS 0.9% 100 ML IV SCH (14:11)
[2021-11-24 16:00] VITALS: BP 116/66
[2021-11-24] MEDS: ENSURE ENLIVE 237 ML LIQUID (VANILLA) PO SCH (17:11)
--- NOTE | 2021-11-24 18:50 | NUR ---
RN CLOSING NOTE PATIENT IN BED, AWAKE, FAMILY AT BEDSIDE. NO SIGNS OF ACUTE DISTRESS NOTED. STABLE IN ROOM AIR, NO SOB NOTED, BREATHING EVEN AND UNLABORED. IV ACCESS ON RIGHT UPPER ARM MIDLINE #18G, INTACT AND PATENT, SALINE LOCKED. ALL DUE MEDS GIVEN, TOLERATED WELL. SAFETY MEASURE IN PLACE. BED IN LOWEST AND LOCKED POSITION, SIDE RAILS UP X2, CALL LIGHT PLACED WITHIN EASY REACH. WILL ENDORSE TO NEXT SHIFT FOR CONTINUITY OF CARE.
--- NOTE | 2021-11-24 19:45 | NUR ---
RN OPENING NOTE PATIENT IN BED AAOX2.ON ROOM AIR JUAN WELL NO SIGN SOB/DISTRESS NOTED.BREATHING EVEN AND UNLABORED.IV ACCESS MNADIE MIDLINE, INTACT, PATENT AND FLUSHING WELL. FALL AND SAFETY MEASURES IN PLACE, BED ALARM ON, BED IN LOW AND LOCK POSITION, CALL LIGHT AND TABLE WITHIN EASY REACH, SIDE RAILS UP X2. WILL CONTINUE TO MONITOR.
[2021-11-24] MEDS: SENNOSIDES 8.6 MG TABLET PO SCH (21:39)
[2021-11-25 06:14] LABS: BASOPHILS % (AUTO) 0.7 % (0.0-2.0); EOSINOPHILS % (AUTO) 0.4 % (0.0-6.0); LYMPHOCYTES # (AUTO) 1.3 K/uL (0.8-4.8); LYMPHOCYTES % (AUTO) 21.2 % (20.0-44.0); MEAN CORPUSCULAR HGB CONC 30 g/dl (31.0-36.0); MEAN CORPUSCULAR VOLUME 71 fL (82-100); MONOCYTES # (AUTO) 0.4 K/uL (0.1-1.30); MONOCYTES % (AUTO) 7.1 % (2.0-12.0); NEUTROPHILS # (AUTO) 4.3 K/uL (1.8-8.9); NEUTROPHILS % (AUTO) 70.6 % (43.0-81.0); PLATELET COUNT (AUTO) 159 K/uL (150-450); RED BLOOD CELL COUNT(AUTO) 2.44 MIL/uL (4.0-5.2); WHITE BLOOD COUNT (AUTO) 6.1 K/uL (4.3-11.0)
--- NOTE | 2021-11-25 06:31 | NUR ---
RN CLOSING NOTE; PATIENT IN BED AAOX2.ON ROOM AIR JUAN WELL NO SIGN SOB/DISTRESS NOTED.BREATHING EVEN AND UNLABORED.DUE MEDS GIVEN ORDER.IV ACCESS MANDIE MIDLINE,INTACT, PATENT AND FLUSHING WELL.ALL NEEDS ATTENDED. FALL AND SAFETY MEASURES IN PLACE, BED ALARM ON, BED IN LOW AND LOCK POSITION, CALL LIGHT AND TABLE WITHIN EASY REACH, SIDE RAILS UP X2. WILL ENDORSED TO NEXT SHIFT
[2021-11-25 06:45] LABS: HEMATOCRIT 17 % (33-45); HEMOGLOBIN 5.2 g/dL (11.5-14.8)
[2021-11-25 07:14] LABS: CALCIUM, SERUM 7.6 mg/dL (8.5-10.1); CARBON DIOXIDE 19 mmol/L (21-32); CHLORIDE 116 mmol/L (98-107); CREATININE 0.8 mg/dL (0.6-1.3); GLUCOSE 89 mg/dL (74-106); POTASSIUM 3.5 mmol/L (3.5-5.1); SODIUM SERUM 146 mmol/L (136-145); UREA NITROGEN, BLOOD 7 mg/dL (7-18)
[2021-11-25 08:00] VITALS: BP 108/50
[2021-11-25] MEDS: MEGESTROL ACETATE SUSP 400 MG/10 ML UDC PO SCH ×2 (08:17→16:37)
[2021-11-25] MEDS: PROSTAT (PYXIS) 30 ML UDC PO SCH (08:17)
[2021-11-25] MEDS: CYANOCOBALAMIN 500 MCG TABLET PO SCH (08:17)
[2021-11-25] MEDS: MULTIVIT W/MINERALS 1 TAB TABLET PO SCH (08:17)
[2021-11-25] MEDS: FOLIC ACID 1 MG TABLET PO SCH (08:17)
[2021-11-25] MEDS: METOPROLOL SUCCINATE 50 MG TAB.SR.24H PO SCH (08:18)
[2021-11-25] MEDS: DIGOXIN 0.125 MG TABLET PO SCH (08:18)
[2021-11-25] MEDS: ENSURE ENLIVE 237 ML LIQUID (VANILLA) PO SCH ×3 (08:19→16:37)
[2021-11-25 12:30] LABS: BAND % (MANUAL) 2 % (0.0-5.0); LYMPHOCYTES % (MANUAL) 11 % (16-48); MONOCYTES % (MANUAL) 3 % (0-11.0); NEUTROPHILS % (MANUAL) 84 (42-76)
[2021-11-25] MEDS: SOD FERRIC GLUC 125 MG in IV NS 0.9% 100 ML IV SCH (15:34)
[2021-11-25 16:00] VITALS: BP 120/60
[2021-11-25 20:00] VITALS: BP 114/51
[2021-11-25] MEDS: SENNOSIDES 8.6 MG TABLET PO SCH (21:29)
--- NOTE | 2021-11-26 06:25 | NUR ---
END OF SHIFT REPORT Patient in bed, stable on room air. No c/o pain, no N/V. MANDIE midline intact. Incontinence care done, turned and repositioned, offloading. H/H slowly improving, on Iron IV, Epogen. No active bleeding. Fall precaution maintained. Will endorse to oncoming RN.
[2021-11-26 07:09] LABS: HEMOGLOBIN 6.1 g/dL (11.5-14.8)
--- NOTE | 2021-11-26 07:15 | NUR ---
CRITICAL VALUE [place]/lab called, Hemoglobin 6.1 results slowly trending up. Patient is Jehovah Witness, refusing blood transfusion per records. Will endorse to oncoming RN.
[2021-11-26 08:00] VITALS: BP 115/67
[2021-11-26] MEDS: EPOETIN ALFA-EPBX 20,000 UNIT/ML VIAL SQ SCH (09:08)
[2021-11-26] MEDS: PROSTAT (PYXIS) 30 ML UDC PO SCH (09:08)
[2021-11-26] MEDS: MEGESTROL ACETATE SUSP 400 MG/10 ML UDC PO SCH ×2 (09:09→17:01)
[2021-11-26] MEDS: MULTIVIT W/MINERALS 1 TAB TABLET PO SCH (09:09)
[2021-11-26] MEDS: CYANOCOBALAMIN 500 MCG TABLET PO SCH (09:09)
[2021-11-26] MEDS: FOLIC ACID 1 MG TABLET PO SCH (09:09)
[2021-11-26] MEDS: METOPROLOL SUCCINATE 50 MG TAB.SR.24H PO SCH (09:10)
[2021-11-26] MEDS: DIGOXIN 0.125 MG TABLET PO SCH (09:10)
[2021-11-26] MEDS: ENSURE ENLIVE 237 ML LIQUID (VANILLA) PO SCH ×3 (09:11→17:01)
[2021-11-26] MEDS: SOD FERRIC GLUC 125 MG in IV NS 0.9% 100 ML IV SCH (14:44)
[2021-11-26 16:00] VITALS: BP 130/56
--- NOTE | 2021-11-26 18:53 | NUR ---
RN CLOSING NOTE PATIENT AWAKE IN BED RESTING. A/O X 2. NO PAIN NOTED AT THIS TIME. ON ROOM AIR, NO DISTRESS OR SHORTNESS OF BREATH NOTED. IV ACCESS MANDIE MIDLINE, INTACT, PATENT AND FLUSHING WELL. ALL SCHEDULE MEDICATIONS ADMINISTERED. PATIENT WAS TURNED AND REPOSITIONED PER PROTOCOL. FALL AND SAFETY MEASURES IN PLACE, BED ALARM ON, BED IN LOW AND LOCK POSITION, CALL LIGHT AND TABLE WITHIN EASY REACH, SIDE RAILS UP X2. WILL ENDORSE TO PATTERNMAKER BENCH.
[2021-11-26 20:22] VITALS: BP 114/53
[2021-11-26] MEDS: SENNOSIDES 8.6 MG TABLET PO SCH (21:33)
--- NOTE | 2021-11-27 07:30 | NUR ---
MS RN OPENING NOTES RECEIVED PATIENT ON BED AWAKE AND A/O X4. ON ROOM AIR TOLERATING WELL. NO SOB NOTED. NOT IN DISTRESS. WITH NO COMPLAINTS OF PAIN OR DISCOMFORT AT THIS TIME. WITH IV ACCESS AT THE RIGHT UPPER ARM MIDLINE, SALINE LOCKED, PATENT AND INTACT. SAFETY MEASURES IN PLACED. CALL LIGHT WITHIN REACH. BED ON LOWEST LOCKED POSITION, SIDE RAILS UP X2. WILL CONTINUE TO MONITOR.
[2021-11-27 08:00] VITALS: BP 87/37
[2021-11-27] MEDS: METOPROLOL SUCCINATE 50 MG TAB.SR.24H PO SCH (09:00)
[2021-11-27] MEDS: FOLIC ACID 1 MG TABLET PO SCH (09:28)
[2021-11-27] MEDS: CYANOCOBALAMIN 500 MCG TABLET PO SCH (09:28)
[2021-11-27] MEDS: MULTIVIT W/MINERALS 1 TAB TABLET PO SCH (09:28)
[2021-11-27] MEDS: MEGESTROL ACETATE SUSP 400 MG/10 ML UDC PO SCH ×2 (09:29→16:07)
[2021-11-27] MEDS: DIGOXIN 0.125 MG TABLET PO SCH (09:29)
[2021-11-27] MEDS: PROSTAT (PYXIS) 30 ML UDC PO SCH (09:30)
[2021-11-27] MEDS: ENSURE ENLIVE 237 ML LIQUID (VANILLA) PO SCH ×3 (09:31→16:08)
[2021-11-27 12:00] VITALS: BP 120/60
--- NOTE | 2021-11-27 18:26 | NUR ---
MS RN CLOSING NOTES PATIENT ON BED AWAKE AND A/O X4. ON ROOM AIR TOLERATING WELL. NO SOB NOTED. NOT IN DISTRESS. WITH NO COMPLAINTS OF PAIN OR DISCOMFORT AT THIS TIME BUT REFUSED TO EAT HER DINNER DUE TO DECREASED APPETITE. WITH IV ACCESS AT THE RIGHT UPPER ARM MIDLINE, SALINE LOCKED, PATENT AND INTACT. DUE MEDS GIVEN. SAFETY MEASURES IN PLACED. CALL LIGHT WITHIN REACH. BED ON LOWEST LOCKED POSITION, SIDE RAILS UP X2. WILL ENDORSE TO NEXT SHIFT FOR TOMI.
[2021-11-27 20:00] VITALS: BP 121/58
[2021-11-27] MEDS: SENNOSIDES 8.6 MG TABLET PO SCH (22:12)
--- NOTE | 2021-11-28 06:22 | NUR ---
RN NOTES PATIENT ON BED RESTING. NO SOB NOTED. NOT IN DISTRESS. WITH NO COMPLAINTS OF PAIN OR DISCOMFORT AT THIS TIME.. SAFETY MEASURES IN PLACED. CALL LIGHT WITHIN REACH. BED ON LOWEST LOCKED POSITION, SIDE RAILS UP X2. WILL ENDORSE TO NEXT SHIFT FOR TOMI.
--- NOTE | 2021-11-28 07:15 | NUR ---
MS RN OPENING NOTES: RECEIVED PATIENT IN BED ASLEEP, EASILY AROUSED WITH STIMULI. ALERT AND ORIENTED X 2, ABLE TO VERBALIZED NEEDS. NO SOB OR CARDIAC DISTRESS NOTED. PATIENT APPEARED WEAK AND PALE. NOTED WITH IV ACCESS ON MANDIE MIDLINE PATENT AND INTACT. SAFETY PRECAUTIONS MAINTAINED: BED LOCKED AND IN LOWEST POSITION, SIDE RAILS UP X 2, CALL LIGHT IN EASY REACH FOR HELP. WILL MONITOR PATIENT FOR ANY SIGNIFICANT CHANGES.
[2021-11-28 07:51] LABS: HEMOGLOBIN 6.4 g/dL (11.5-14.8)
[2021-11-28 08:00] VITALS: BP 112/59
[2021-11-28] MEDS: ENSURE ENLIVE 237 ML LIQUID (VANILLA) PO SCH ×3 (08:01→17:12)
[2021-11-28] MEDS: MEGESTROL ACETATE SUSP 400 MG/10 ML UDC PO SCH ×2 (08:24→16:44)
[2021-11-28] MEDS: METOPROLOL SUCCINATE 50 MG TAB.SR.24H PO SCH (08:25)
[2021-11-28] MEDS: CYANOCOBALAMIN 500 MCG TABLET PO SCH (08:25)
[2021-11-28] MEDS: MULTIVIT W/MINERALS 1 TAB TABLET PO SCH (08:25)
[2021-11-28] MEDS: DIGOXIN 0.125 MG TABLET PO SCH (08:26)
[2021-11-28] MEDS: FOLIC ACID 1 MG TABLET PO SCH (08:26)
[2021-11-28 08:50] LABS: IRON, SERUM 40 ug/dl (50-175); TOTAL IRON BINDING CAPACITY 163 ug/dl (250-450)
[2021-11-28] MEDS: PROSOURCE / PROSTAT (PYXIS) 30 ML UDC PO SCH (09:13)
--- NOTE | 2021-11-28 14:40 | NUR ---
RN NOTES: OFFERED ENSURE, PATIENT HAD FEW SIPS ONLY. BED BATH DONE AND APPLIED MEFILEX TO SACRUM.
[2021-11-28 16:00] VITALS: BP 136/69
--- NOTE | 2021-11-28 18:46 | NUR ---
MS RN CLOSING NOTES: PATIENT IN BED AWAKE. ALERT AND ORIENTED X 2, ABLE TO VERBALIZED NEEDS. NO SOB OR CARDIAC DISTRESS NOTED. PATIENT APPEARED WEAK AND PALE. ENCOURAGED TO EAT MEALS, HAD FEW BITES AND SIPS. NOTED WITH IV ACCESS ON MANDIE MIDLINE PATENT AND INTACT. SAFETY PRECAUTIONS MAINTAINED: BED LOCKED AND IN LOWEST POSITION, SIDE RAILS UP X 2, CALL LIGHT IN EASY REACH FOR HELP. WILL MONITOR PATIENT FOR ANY SIGNIFICANT CHANGES. ENDORSED TO STRIPING MACHINE OPERATOR FOR CONTINUITY OF CARE.
--- NOTE | 2021-11-28 19:29 | NUR ---
MS RN OPENING NOTES: PATIENT IN BED AWAKE. ALERT AND ORIENTED X 2, ABLE TO VERBALIZED NEEDS. NO SOB OR CARDIAC DISTRESS NOTED. PATIENT APPEARED WEAK AND PALE. NOTED WITH IV ACCESS ON MANDIE MIDLINE PATENT AND INTACT. SAFETY PRECAUTIONS MAINTAINED: BED LOCKED AND IN LOWEST POSITION, SIDE RAILS UP X 2, CALL LIGHT IN EASY REACH FOR HELP. WILL MONITOR PATIENT FOR ANY SIGNIFICANT CHANGES.
[2021-11-28 20:00] VITALS: BP 137/62
[2021-11-28] MEDS: SENNOSIDES 8.6 MG TABLET PO SCH (21:06)
[2021-11-29 06:36] LABS: HEMOGLOBIN 6.7 g/dL (11.5-14.8)
--- NOTE | 2021-11-29 06:52 | NUR ---
MS RN CLOSING NOTES: PATIENT IN BED AWAKE. ALERT AND ORIENTED X 2, ABLE TO VERBALIZED NEEDS. NO SOB OR CARDIAC DISTRESS NOTED. PATIENT APPEARED WEAK AND PALE. NOTED WITH IV ACCESS ON MANDIE MIDLINE PATENT AND INTACT. SAFETY PRECAUTIONS MAINTAINED: BED LOCKED AND IN LOWEST POSITION, SIDE RAILS UP X 2, CALL LIGHT IN EASY REACH FOR HELP. WILL ENDORSE CRAE TO DYA SHIFT NURSE.
[2021-11-29] MEDS: MULTIVIT W/MINERALS 1 TAB TABLET PO SCH (09:25)
[2021-11-29] MEDS: CYANOCOBALAMIN 500 MCG TABLET PO SCH (09:25)
[2021-11-29] MEDS: MEGESTROL ACETATE SUSP 400 MG/10 ML UDC PO SCH ×2 (09:25→16:34)
[2021-11-29] MEDS: ENSURE ENLIVE 237 ML LIQUID (VANILLA) PO SCH ×3 (09:25→16:50)
[2021-11-29] MEDS: DIGOXIN 0.125 MG TABLET PO SCH (09:25)
[2021-11-29] MEDS: FOLIC ACID 1 MG TABLET PO SCH (09:25)
[2021-11-29] MEDS: PROSOURCE / PROSTAT (PYXIS) 30 ML UDC PO SCH (09:26)
[2021-11-29] MEDS: METOPROLOL SUCCINATE 50 MG TAB.SR.24H PO SCH (09:26)
[2021-11-29] MEDS: EPOETIN ALFA-EPBX 20,000 UNIT/ML VIAL SQ SCH (09:26)
[2021-11-29 09:56] VITALS: BP 129/69
[2021-11-29] MEDS: SOD FERRIC GLUC 125 MG in IV NS 0.9% 100 ML IV SCH (15:35)
[2021-11-29 16:30] VITALS: BP 138/54
--- NOTE | 2021-11-29 18:21 | NUR ---
MS RN CLOSING NOTES PATIENT ON BED RESTING AND A/O X4. ON ROOM AIR TOLERATING WELL. NO SOB NOTED. NOT IN DISTRESS. WITH NO COMPLAINTS OF PAIN OR DISCOMFORT AT THIS TIME. WITH IV ACCESS AT THE RIGHT UPPER ARM MIDLINE, SALINE LOCKED, PATENT AND INTACT. DUE MEDS GIVEN. SAFETY MEASURES IN PLACED. CALL LIGHT WITHIN REACH. BED ON LOWEST LOCKED POSITION, SIDE RAILS UP X2. WILL ENDORSE TO NEXT SHIFT FOR TOMI.
--- NOTE | 2021-11-29 19:35 | NUR ---
MS RN OPENING NOTE PATIENT AWAKE IN BED, ALERT/ORIENTED X 2. PATIENT STABLE ON RA, NO S/S OF DISTRESS OR SOB NOTED, BREATHING EVEN AND UNLABORED. MANDIE MIDLINE INTACT AND SALINE LOCKED. PATIENT RESTING AND DOESN'T APPEAR IN PAIN OR DISTRESS. SAFETY MEASURES IN PLACE: CALL LIGHT WITHIN REACH, SIDE RAILS UP X 3, BED LOCKED IN LOWEST POSITION, BED ALARM ON. WILL CONTINUE TO MONITOR PATIENT
[2021-11-29 20:00] VITALS: BP 124/57
[2021-11-29] MEDS: SENNOSIDES 8.6 MG TABLET PO SCH (22:10)
--- NOTE | 2021-11-30 06:38 | NUR ---
MS RN CLOSING NOTE PATIENT SLEEPING IN BED, ALERT/ORIENTED X 2. PATIENT STABLE ON RA, NO S/S OF DISTRESS OR SOB NOTED, BREATHING EVEN AND UNLABORED. MANDIE MIDLINE INTACT AND SALINE LOCKED. PATIENT SLEPT WELL THROUGH THE NIGHT, NO SIGNIFICANT CHANGES. MEDICATIONS GIVEN ORDERED, PT NEEDS MET THROUGHOUT SHIFT, PT TURNED Q2H. SAFETY MEASURES IN PLACE: CALL LIGHT WITHIN REACH, SIDE RAILS UP X 3, BED LOCKED IN LOWEST POSITION, BED ALARM ON. WILL ENDORSE TO DAY SHIFT NURSE FOR CONTINUITY OF CARE
[2021-11-30 07:43] LABS: HEMOGLOBIN 6.7 g/dL (11.5-14.8)
[2021-11-30] MEDS: ENSURE ENLIVE 237 ML LIQUID (VANILLA) PO SCH ×3 (07:47→16:31)
--- NOTE | 2021-11-30 07:54 | NUR ---
MS RN OPENING NOTES PATIENT LAYING IN BED, A/O X 2, TOLERATING WELL ON ROOM AIR WITH NO S/S RESPIRATORY DISTRESS. NO COMPLAINTS OF PAIN OR DISCOMFORT AT THIS TIME. MANDIE MIDLINE SALINE LOCKED, CLEAN, INTACT, AND FLUSHING WELL. SAFETY MEASURES IN PLACE: BED IN LOWEST LOCKED POSITION, SIDE RAILS UP X 2, CALL LIGHT WITHIN REACH. WILL CONTINUE TO MONITOR.
[2021-11-30] MEDS: DIGOXIN 0.125 MG TABLET PO SCH (08:31)
[2021-11-30] MEDS: FOLIC ACID 1 MG TABLET PO SCH (08:31)
[2021-11-30] MEDS: MEGESTROL ACETATE SUSP 400 MG/10 ML UDC PO SCH ×2 (08:31→16:30)
[2021-11-30] MEDS: MULTIVIT W/MINERALS 1 TAB TABLET PO SCH (08:32)
[2021-11-30] MEDS: METOPROLOL SUCCINATE 50 MG TAB.SR.24H PO SCH (08:32)
[2021-11-30] MEDS: CYANOCOBALAMIN 500 MCG TABLET PO SCH (08:32)
[2021-11-30] MEDS: PROSOURCE / PROSTAT (PYXIS) 30 ML UDC PO SCH (08:43)
[2021-11-30] MEDS ORDERED: METOPROLOL SUCCINATE 25 MG TAB.SR.24H PO SCH (12:00)
[2021-11-30] MEDS ORDERED: PEG 3350/NA SULF,BICARB,CL/KCL 4,000 ML BOTTLE PO ONE (13:00)
[2021-11-30] MEDS: SOD FERRIC GLUC 125 MG in IV NS 0.9% 100 ML IV SCH (14:05)
--- NOTE | 2021-11-30 14:53 | NUR ---
MS RN NOTES ORDER RECEIVED FOR ULTRASOUND GUIDED NEEDLE BIOPSY. VOICEMAIL LEFT WITH PATIENT'S DPOA (BROTHER) FOR TELEPHONE CONSENT. AWAITING RETURN CALL FROM [facility] FOR CONSENT.
[2021-11-30 19:00] VITALS: BP 113/47
--- NOTE | 2021-11-30 19:00 | NUR ---
MS RN CLOSING PATIENT LAYING IN BED, A/O X 2, TOLERATING WELL ON ROOM AIR WITH NO S/S RESPIRATORY DISTRESS. NO COMPLAINTS OF PAIN OR DISCOMFORT AT THIS TIME. MANDIE MIDLINE SALINE LOCKED. SAFETY MEASURES IN PLACE: BED IN LOWEST LOCKED POSITION, SIDE RAILS UP X 2, CALL LIGHT WITHIN REACH. ALL NEEDS MET. WILL ENDORSE TO DREDGE RUNNER FOR TOMI.
--- NOTE | 2021-11-30 19:50 | NUR ---
MS RN OPENING NOTES RECEIVED PATIENT RESTING IN BED COMFORTABLY; A/OX2, BREATHING EVEN AND UNLABORED; TOLERATING ROOM AIR WELL; NO SOB NOTED; PER AM SHIFT, GOLYTELY WAS ORDERED EARLIER TODAY AROUND 1200, BOTTLE AT BEDSIDE STILL FULL; UNABLE TO EAT/DRINK WELL; PER CHARGE NURSE, NO ENDOSCOPY ORDERED/SCHEDULED; PER NOTES, WAIT FOR H/H TO REACH AT LEAST 7.0 BEFORE PROCEDURE; WILL CLARIFY WITH DR. DERAS; AWAITING MD REPLY; MANDIE MIDLINE S/L, INTACT AND PATENT, FLUSHING WELL; NO S/S REDNESS OR INFILTRATION NOTED; SAFETY PRECAUTIONS IMPLEMENTED; BED LOCKED IN LOW POSITION; SIDE RAILSX2, CALL LIGHT WITHIN REACH; WILL CONT PLAN OF CARE
[2021-11-30 20:00] VITALS: BP 113/47
--- NOTE | 2021-11-30 20:45 | NUR ---
MS RN NOTES PER DR. DERAS, ATTEMPT TO HAVE PATIENT DRINK, SIT IN PATIENT ROOM AND CALL BROTHER TO ENCOURAGE HER TO DRINK THE GOLYTELY. BROTHER NOT ANSWERING, PATIENT DRANK AT LEAST 2 CUPS OF THE FLUIDS; WILL ATTEMPT TO HAVE PATIENT DRINK MUCH SHE CAN THROUGHOUT SHIFT; CHARGE AWARE;
[2021-11-30] MEDS: SENNOSIDES 8.6 MG TABLET PO SCH (21:09)
--- NOTE | 2021-11-30 21:12 | NUR ---
MS RN NOTES PATIENT STILL NOT ABLE TO DRINK MUCH FLUID; PER DR. DERAS, CONTINUE TO ENCOURAGE PATIENT TO DRINK FLUIDS OR MAY NEED NGT INSERTION TO GIVE THE GOLYTELY SOLUTION; CHARGE AWARE
--- NOTE | 2021-11-30 23:25 | NUR ---
MS RN NOTES ATTEMPTED TO CALL ALISON MONROE (BROTHER), NO ANSWER, ANOTHER VOICEMAIL WAS LEFT TO CALL BACK. WILL AWAIT CALL BACK, CHARGE AWARE
--- NOTE | 2021-12-01 02:22 | NUR ---
MS RN NOTES PATIENT REFUSING TO DRINK GOLYTLY; DPOA BROTHER FER STILL NOT ANSWERING AND HAS NOT CALLED BACK; CHARGE NURSE AWARE; SKIN ASSESSMENT DONE AND PICTURES TAKEN, FILED IN PATIENT BINDER;
[2021-12-01 06:16] LABS: CALCIUM, SERUM 8.2 mg/dL (8.5-10.1); CREATININE 0.8 mg/dL (0.6-1.3)
--- NOTE | 2021-12-01 06:31 | NUR ---
MS RN CLOSING NOTES PATIENT RESTING IN BED COMFORTABLY; A/OX2, BREATHING EVEN AND UNLABORED; TOLERATING ROOM AIR WELL; NO SOB NOTED; PATIENT DID NOT FINISH GOLYTELY; CHARGE AWARE; BROTHER ALISON STILL HAS NOT RETURNED CALL; PHONE GOES STRAIGHT TO VOICEMAIL, NO OTHER NUMBER ON FILE; SEVERAL VOICEMAILS LEFT; NO CONSENTS SIGNED; MANDIE MIDLINE S/L, INTACT AND PATENT, FLUSHING WELL; NO S/S REDNESS OR INFILTRATION NOTED; ALL NEEDS RENDERED; SAFETY PRECAUTIONS IMPLEMENTED; BED LOCKED IN LOW POSITION; SIDE RAILSX2, CALL LIGHT WITHIN REACH; WILL CONT PLAN OF CARE ENDORSE TOMI TO ONCOMING SHIFT
[2021-12-01 07:07] LABS: BASOPHILS % (AUTO) 0.7 % (0.0-2.0); HEMATOCRIT 24 % (33-45); HEMOGLOBIN 7.1 g/dL (11.5-14.8); LYMPHOCYTES # (AUTO) 1.4 K/uL (0.8-4.8); LYMPHOCYTES % (AUTO) 22.4 % (20.0-44.0); MEAN CORPUSCULAR HGB CONC 30 g/dl (31.0-36.0); MEAN CORPUSCULAR VOLUME 79 fL (82-100); MONOCYTES # (AUTO) 0.4 K/uL (0.1-1.30); MONOCYTES % (AUTO) 5.9 % (2.0-12.0); NEUTROPHILS # (AUTO) 4.4 K/uL (1.8-8.9); PLATELET COUNT (AUTO) 215 K/uL (150-450); RED BLOOD CELL COUNT(AUTO) 3.05 MIL/uL (4.0-5.2); WHITE BLOOD COUNT (AUTO) 6.2 K/uL (4.3-11.0)
--- NOTE | 2021-12-01 07:30 | NUR ---
MS RN OPENING NOTES: RECEIVED PATIENT IN BED ASLEEP, EASILY AROUSED WITH STIMULI. ALERT AND ORIENTED X 2, ABLE TO VERBALIZED NEEDS. NO SOB OR CARDIAC DISTRESS NOTED. PATIENT APPEARED WEAK AND PALE. NOTED WITH IV ACCESS ON MANDIE MIDLINE g#18 PATENT AND INTACT. SAFETY PRECAUTIONS MAINTAINED: BED LOCKED AND IN LOWEST POSITION, SIDE RAILS UP X 2, CALL LIGHT IN EASY REACH FOR HELP. WILL MONITOR PATIENT FOR ANY SIGNIFICANT CHANGES. KEPT CLEAN, DRY AND COMFORTABLE.
[2021-12-01] MEDS: ENSURE ENLIVE 237 ML LIQUID (VANILLA) PO SCH ×3 (07:32→17:00)
[2021-12-01 08:13] VITALS: BP 138/56
--- NOTE | 2021-12-01 08:18 | NUR ---
RN NOTES: SEE AND EXAMINED BY DR DERAS, DR DERAS VERBALIZED NGT INSERTION. DR DERAS AT BED SIDE WHEN ATTEMPTED TO INSERT NG TUBE, PT REFUSED, WITHDRAWING THE TUBE AND SHE'S CRYING.
--- NOTE | 2021-12-01 08:20 | NUR ---
RN NOTES: PER DR DERAS DR MONSIVAIS FOR ALTERNATIVES FOR BOWEL PREP, FAILED NG TUBE. CALLED DR MONSIVAIS, PER DR MONSIVAIS CALL DR PARADA, DR DERAS STATED OKAY FOR DR PARADA. INFORMED DR PARADA VIA TEXT MESSAGE WAITING FOR RESPONSE.
[2021-12-01] MEDS: POTASSIUM CHLORIDE 10 MEQ/50 ML PREMIXED IVPB FOR PERIPHERAL LINE IV SCH ×4 (08:40→12:34)
[2021-12-01] MEDS: CYANOCOBALAMIN 500 MCG TABLET PO SCH (08:41)
[2021-12-01] MEDS: MEGESTROL ACETATE SUSP 400 MG/10 ML UDC PO SCH ×2 (08:41→17:00)
[2021-12-01] MEDS: FOLIC ACID 1 MG TABLET PO SCH (08:41)
[2021-12-01] MEDS: MULTIVIT W/MINERALS 1 TAB TABLET PO SCH (08:41)
[2021-12-01] MEDS: DIGOXIN 0.125 MG TABLET PO SCH (08:43)
[2021-12-01] MEDS: METOPROLOL SUCCINATE 50 MG TAB.SR.24H PO SCH (08:43)
[2021-12-01] MEDS: PROSOURCE / PROSTAT (PYXIS) 30 ML UDC PO SCH ×2 (09:00→09:36)
--- NOTE | 2021-12-01 09:00 | NUR ---
RN NOTES: PATIENT BP 91/52 PULSE 58. METOPROLOL AND DIGOXIN NOT GIVEN.
[2021-12-01] MEDS: Potassium Chloride 20 MEQ in IV D5W 1,000 ML IV SCH ×2 (09:04→22:30)
--- NOTE | 2021-12-01 12:15 | NUR ---
RN NOTES: RECEIVED AN ORDER FROM DR PARADA, ORDERED SORBITOL 70% 60ML EVERY 6HOURS. ORDERS NOTED AND CARRIED OUT.
[2021-12-01] MEDS ORDERED: SORBITOL SOLUTION 70% 30 ML SOLUTION PO SCH (12:30)
[2021-12-01] MEDS: SOD FERRIC GLUC 125 MG in IV NS 0.9% 100 ML IV SCH (14:20)
[2021-12-01 16:39] VITALS: BP 127/66
[2021-12-01 16:40] VITALS: BP 112/40
[2021-12-01 16:42] LABS: LYMPHOCYTES % (MANUAL) 13 % (16-48); MONOCYTES % (MANUAL) 2 % (0-11.0); NEUTROPHILS % (MANUAL) 85 (42-76)
[2021-12-01 18:56] LABS: BILIRUBIN,URINE NEGATIVE (NEGATIVE); COLOR,URINE YELLOW (YELLOW); LEUKOCYTE ESTERASE ,URINE NEGATIVE (NEGATIVE); NITRITE, URINE NEGATIVE (NEGATIVE); PH,URINE 5.5 (5.0-8.0); PROTEIN,URINE 30 mg/dl (NEGATIVE); UGLUCOSE NEGATIVE (NEGATIVE); UROBILINOGEN,URINE 0.2 EU/dL (0.2)
--- NOTE | 2021-12-01 19:02 | NUR ---
MS RN CLOSING NOTES: PATIENT IN BED ASLEEP AND EASILY AROUSED WITH STIMULI. NO SOB OR CARDIAC DISTRESS NOTED, AFEBRILE. PALE AND WEAK IN APPEARANCE. IV ACCESS ON MANDIE MIDLINE GAUGE 18 PATENT AND INTACT AND INFUSING D5W KCL 20MEQ 1L X 75ML/ HOUR, PATIENT ON CLEAR LIQUID DIET. SAFETY PRECAUTIONS MAINTAINED: BED LOCKED AND IN LOWEST POSITION, SIDE RAILS UP X 2. CALL LIGHT IN EASY REACH FOR HELP OR ASSISTANCE. ENDORSED TO MANAGING MANAGER FOR CONTINUITY OF CARE.
[2021-12-01 19:04] LABS: BACTERIA,URINE 3+ /HPF (None Seen); SQUAMOUS EPITHELIAL CELL,UR 0-2 /HPF (None Seen); WBC,URINE 0-2 /HPF (0-3); YEAST,URINE Few /HPF (None Seen)
--- NOTE | 2021-12-01 19:25 | NUR ---
MS RN OPENING NOTES RECEIVED PATIENT RESTING IN BED COMFORTABLY; A/OX2, BREATHING EVEN AND UNLABORED; TOLERATING ROOM AIR WELL; NO SOB NOTED; PER AM SHIFT; MANDIE MIDLINE, INTACT AND PATENT, FLUSHING WELL; NO S/S REDNESS OR INFILTRATION NOTED; TOLERATING IVF WELL; PER AM SHIFT, DPOA BROTHER CAME TO UNIT, DISCUSSING WITH FAMILY REGARDING POSSIBLE PROCEDURES; NO CONSENTS SIGNED AT THIS TIME; SAFETY PRECAUTIONS IMPLEMENTED; BED LOCKED IN LOW POSITION; SIDE RAILSX2, CALL LIGHT WITHIN REACH; WILL CONT PLAN OF CARE
[2021-12-01 20:00] VITALS: BP 129/67
[2021-12-01] MEDS: SENNOSIDES 8.6 MG TABLET PO SCH (21:49)
--- NOTE | 2021-12-01 22:11 | NUR ---
MS RN NOTES SPOKE WITH ROYCE, LIGHTING FIXTURES DECORATOR WORKING ON PATIENT'S CASE TO TRANSFER TO [facility], PER ROYCE, NO BED AVAILABLE YET BUT WILL STILL PROCESS APPLICATION; PER ROYCE, NEED COVID19 RESULTS FROM ADMISSION; CHARGE NURSE AWARE; FAXED RESULT; AWAITING FOR CALL BACK FROM ROYCE TO CONFIRM SHE RECEIVED THE RESULTS AND TO CONFIRM PATIENT'S APPLICATION FOR TRANSFER TO [facility] IS IN PROCESS;
[2021-12-02 06:08] LABS: BASOPHILS % (AUTO) 0.4 % (0.0-2.0); HEMATOCRIT 26 % (33-45); HEMOGLOBIN 7.6 g/dL (11.5-14.8); LYMPHOCYTES # (AUTO) 1.3 K/uL (0.8-4.8); LYMPHOCYTES % (AUTO) 21.2 % (20.0-44.0); MEAN CORPUSCULAR HGB CONC 29 g/dl (31.0-36.0); MEAN CORPUSCULAR VOLUME 80 fL (82-100); MONOCYTES # (AUTO) 0.4 K/uL (0.1-1.30); MONOCYTES % (AUTO) 5.9 % (2.0-12.0); NEUTROPHILS # (AUTO) 4.4 K/uL (1.8-8.9); NEUTROPHILS % (AUTO) 72.5 % (43.0-81.0); PLATELET COUNT (AUTO) 202 K/uL (150-450); RED BLOOD CELL COUNT(AUTO) 3.28 MIL/uL (4.0-5.2); WHITE BLOOD COUNT (AUTO) 6.1 K/uL (4.3-11.0)
--- NOTE | 2021-12-02 06:37 | NUR ---
MS RN CLOSING NOTES PATIENT RESTING IN BED COMFORTABLY; A/OX2, BREATHING EVEN AND UNLABORED; TOLERATING ROOM AIR WELL; NO SOB NOTED; NO CONSENTS SIGNED; PATIENT FAMILY STILL DISCUSSING; MANDIE MIDLINE S/L, INTACT AND PATENT, FLUSHING WELL; NO S/S REDNESS OR INFILTRATION NOTED; TOLERATING IVF WELL; ALL NEEDS RENDERED; SAFETY PRECAUTIONS IMPLEMENTED; BED LOCKED IN LOW POSITION; SIDE RAILSX2, CALL LIGHT WITHIN REACH; WILL CONT PLAN OF CARE ENDORSE TOMI TO ONCOMING SHIFT
[2021-12-02 07:08] LABS: CALCIUM, SERUM 7.8 mg/dL (8.5-10.1); CARBON DIOXIDE 25 mmol/L (21-32); CHLORIDE 121 mmol/L (98-107); CREATININE 0.7 mg/dL (0.6-1.3); GLUCOSE 111 mg/dL (74-106); SODIUM SERUM 153 mmol/L (136-145); UREA NITROGEN, BLOOD 14 mg/dL (7-18)
--- NOTE | 2021-12-02 07:30 | NUR ---
RN MS NOTES PT IN BED, ASLEEP, EASY TO AROUSE, ALERT AND VERBALLY RESPONSIVE, NO COMPLAINT AT THIS TIME, NOT IN DISTRESS, CALL LIGHT WITHIN REACH, NEEDS ATTENDED.
[2021-12-02 08:00] VITALS: BP 110/40
[2021-12-02] MEDS: ENSURE ENLIVE 237 ML LIQUID (VANILLA) PO SCH (08:16)
--- NOTE | 2021-12-02 08:41 | NUR ---
RN MS NOTES PT SEEN AND EXAMINE BY DR. DERAS, PLAN OF CARE DISCUSSED WITH PT.
[2021-12-02] MEDS: MULTIVIT W/MINERALS 1 TAB TABLET PO SCH ×2 (09:00→09:13)
[2021-12-02] MEDS: FOLIC ACID 1 MG TABLET PO SCH ×2 (09:00→09:13)
[2021-12-02] MEDS: CYANOCOBALAMIN 500 MCG TABLET PO SCH ×2 (09:00→09:13)
[2021-12-02] MEDS: DIGOXIN 0.125 MG TABLET PO SCH ×2 (09:00→09:13)
[2021-12-02] MEDS: MEGESTROL ACETATE SUSP 400 MG/10 ML UDC PO SCH ×3 (09:00→18:28)
[2021-12-02] MEDS: METOPROLOL SUCCINATE 50 MG TAB.SR.24H PO SCH ×2 (09:00→09:14)
--- NOTE | 2021-12-02 10:28 | NUR ---
RN MS notes Offered meds to pt, but pt refused meds. Pt stated that she won't take meds, Explained to pt why meds were being given, also explained the benefit of meds, but pt still refused to take meds.
[2021-12-02] MEDS ORDERED: POTASSIUM CHLORIDE 20 MEQ TAB.PRT.SR PO SCH (11:00)
[2021-12-02] MEDS: POTASSIUM CHLORIDE 10 MEQ/50 ML PREMIXED IVPB FOR PERIPHERAL LINE IV SCH ×5 (11:54→22:40)
[2021-12-02] MEDS: ENSURE CLEAR 237 ML LIQUID (MIX BERRY) PO SCH ×2 (12:10→18:26)
[2021-12-02] MEDS: SOD FERRIC GLUC 125 MG in IV NS 0.9% 100 ML IV SCH (15:16)
[2021-12-02] MEDS: Potassium Chloride 20 MEQ in IV D5W 1,000 ML IV SCH (16:14)
--- NOTE | 2021-12-02 18:53 | NUR ---
RN MS NOTES PT IN BED, RESTING, NO COMPLAINT AT THIS TIME, RESPIRATIONS NORMAL, CALL LIGHT WITHIN REACH, IV FLUIDS INFUSING WELL, PM MEDS GIVEN ORDERED, PM CARE PROVIDED, ALL NEEDS ATTENDED.
[2021-12-02 20:00] VITALS: BP 134/55
--- NOTE | 2021-12-02 20:49 | NUR ---
MS/TELE/RN DURING INITIAL SHIFT ROUND, PATIENT WAS IN BED AWAKE, ALERT, ORIENTED, NO DISTRESS NOTED, CALL LIGHT IN REACH, FALL PRECAUTIONS PER PROTOCOL IMPLEMENTED, NEEDS ATTENDED, WILL MONITOR.
[2021-12-02] MEDS: SENNOSIDES 8.6 MG TABLET PO SCH (22:00)
[2021-12-03] MEDS: POTASSIUM CHLORIDE 10 MEQ/50 ML PREMIXED IVPB FOR PERIPHERAL LINE IV SCH (00:23)
--- NOTE | 2021-12-03 02:40 | NUR ---
MS/TELE/RN PATIENT IS SLEEPING, NO SIGNS OF DISTRESS NOTED, CALL LIGHT IN REACH. WILL CONTINUE TO MONITOR.
[2021-12-03] MEDS: Potassium Chloride 20 MEQ in IV D5W 1,000 ML IV SCH ×2 (02:42→15:01)
--- NOTE | 2021-12-03 06:19 | NUR ---
MS/TELE/RN PATIENT IS AWAKE, NO SIGNS OF DISTRESS NOTED, IVF INFUSING WELL, ALL NEEDS ATTENDED AT THIS TIME, WILL CONTINUE TO MONITOR.
[2021-12-03 06:28] LABS: CALCIUM, SERUM 7.7 mg/dL (8.5-10.1); CREATININE 0.8 mg/dL (0.6-1.3); POTASSIUM 3.9 mmol/L (3.5-5.1)
--- NOTE | 2021-12-03 07:45 | NUR ---
RN OPENING NOTE RECEIVED PATIENT REPORT. PATIENT CURRENTLY IN BED RESTING. ON 2 LITERS SUPPLEMENTAL OXYGEN VIA NASAL CANULA, OXYGEN SATURATION IN THE HIGH 90S. MEDICAL SURGICAL STATUS NOTED. PATIENT IS ALERT AND ORIENTED TIMES 1, KNOWS HER NAME BUT UNABLE TO ANSWER QUESTIONS OR PROVIDE MEANINGFUL INSIGHT INTO HEALTH CONDITION. DIAPER NOTED. IV ACCESS ON LEFT UPPER ARM MIDLINE 18 GAUGE, FLUSHING EASILY WITH NO RESISTANCE. SAFETY MEASURES IMPLEMENTED, BED IN LOWEST LOCKED POSITION, SIDE RAILS UP TIMES 2, CALL LIGHT WITHIN REACH. WILL CONTINUE PLAN OF CARE AND ANTICIPATE NEEDS.
[2021-12-03 08:00] VITALS: BP 162/71
[2021-12-03] MEDS: ENSURE CLEAR 237 ML LIQUID (MIX BERRY) PO SCH ×2 (08:28→12:02)
[2021-12-03] MEDS: FOLIC ACID 1 MG TABLET PO SCH (08:38)
[2021-12-03] MEDS: MEGESTROL ACETATE SUSP 400 MG/10 ML UDC PO SCH (08:38)
[2021-12-03] MEDS: CYANOCOBALAMIN 500 MCG TABLET PO SCH (08:39)
[2021-12-03] MEDS: MULTIVIT W/MINERALS 1 TAB TABLET PO SCH (08:39)
[2021-12-03] MEDS: DIGOXIN 0.125 MG TABLET PO SCH (08:39)
[2021-12-03] MEDS: METOPROLOL SUCCINATE 50 MG TAB.SR.24H PO SCH (08:40)
[2021-12-03] MEDS: EPOETIN ALFA-EPBX 20,000 UNIT/ML VIAL SQ SCH (08:40)
[2021-12-03] MEDS: PROSOURCE / PROSTAT (PYXIS) 30 ML UDC PO SCH (08:43)
[2021-12-03 08:59] LABS: HEMOGLOBIN 7.4 g/dL (11.5-14.8)
[2021-12-03 10:53] VITALS: BP 162/71
[2021-12-03] MEDS: SOD FERRIC GLUC 125 MG in IV NS 0.9% 100 ML IV SCH (13:33)
[2021-12-03 16:00] VITALS: BP 127/47
[2021-12-03 16:24] VITALS: BP 127/47
--- NOTE | 2021-12-03 17:47 | NUR ---
PATIENT HAS BEEN TRANSFERRED TO ANOTHER FACILITY TO OBTAIN A HIGHER LEVEL OF CARE. IV ACCESS REMAINS ON RIGHT UPPER ARM MIDLINE. BELONGINGS LIST SIGNED AND ALL BELONGINGS ACCOUNTED FOR. DISCHARGED PAPERWORK SIGNED AND FILED IN PHYSICAL CHART. HAND OFF REPORT GIVEN TO AMBULANCE CREW. NEXT OF KIN NOTIFIED OF TRANSFER. PATIENT LEFT HOSPITAL GR[facility]DS IN STABLE CONDITION VIA PRIVATE AMBULANCE.
[2021-12-03] MEDS ORDERED: NITROFURANTOIN/MONOHYDRATE MACROCRYSTALS 100 MG CAPSULE PO SCH (21:00)
== END 2021-12-03 17:55 | disposition short-term general hospital (02) | DRG 377 ==
LOC: ER 15:45 → TELE 21:01 → MED 11-21 18:58
PROVIDERS: ADMIT Internal Medicine; ATTEND Internal Medicine
PROC: 05H933Z Insertion of Infusion Device into Right Brachial Vein, Percutaneous Approach (ICD-10-PCS; principal; 2021-11-16)
PROC: 05H933Z Insertion of Infusion Device into Right Brachial Vein, Percutaneous Approach (ICD-10-PCS; 2021-11-20)
PROC: 05HC33Z Insertion of Infusion Device into Left Basilic Vein, Percutaneous Approach (ICD-10-PCS; 2021-12-02)
DX: K92.2 Gastrointestinal hemorrhage, unspecified (principal); E43 Unspecified severe protein-calorie malnutrition; I26.99 Other pulmonary embolism without acute cor pulmonale; N17.0 Acute kidney failure with tubular necrosis; Z68.1 Body mass index [BMI] 19.9 or less, adult; K56.1 Intussusception; I48.20 Chronic atrial fibrillation, unspecified; E87.0 Hyperosmolality and hypernatremia; D68.9 Coagulation defect, unspecified; D50.9 Iron deficiency anemia, unspecified; I95.9 Hypotension, unspecified; Z20.822 Contact with and (suspected) exposure to COVID-19; E87.5 Hyperkalemia; G30.9 Alzheimer's disease, unspecified; F02.80 Dementia in other diseases classified elsewhere, unspecified severity, without behavioral disturbance, psychotic disturbance, mood disturbance, and anxiety; Z79.899 Other long term (current) drug therapy; I10 Essential (primary) hypertension; E87.6 Hypokalemia; D63.8 Anemia in other chronic diseases classified elsewhere; I27.20 Pulmonary hypertension, unspecified; E78.5 Hyperlipidemia, unspecified; E88.09 Other disorders of plasma-protein metabolism, not elsewhere classified; Z53.1 Procedure and treatment not carried out because of patient's decision for reasons of belief and group pressure; N83.9 Noninflammatory disorder of ovary, fallopian tube and broad ligament, unspecified; R78.89 Finding of other specified substances, not normally found in blood
CPT/HCPCS: 36410; 36415; 71045-TC; 71270-TC; 74178; 76856-TC; 80048-TC; 80053-TC; 80061-TC; 80076-TC; 81001; 82272-TC; 82378; 82533; 82607-TC; 82728-TC; 82784; 83540-TC; 83735-TC; 84100-TC; 84132-TC; 84155; 84165; 84439-TC; 84443-TC; 84484-TC; 85025-TC; 85027-TC; 85610-TC; 85652-TC; 85730-TC; 86301; 86304; 86334; 87040-TC; 87081-TC; 87086-TC; 87186-TC; 93307-TC; 93970-TC; 97112-TC; 97530-TC; C9803; G0378; J0885; J1160; J2916; J3480; J3490; J7030; J7040; J7050; J7070; Q9967